=== PATIENT | female | born 1945 | race Caucasian/White ===

== ENCOUNTER → 2016-08-08 | Outpatient (CLI) | payer OTHER ==
[~2016-08-08] MED LIST: ASCO1TAB3 PO; ASPCH81X PO; CALC500C70 PO; CITA40TA12 PO; CLB200 PO; METO25TA3 PO; MULT-506 PO; OMEG1CAP71 PO; POTA1TAB97 PO; PRAV80TA PO; TRIA37.5 PO; VITAMIN B12 COMPLEX PO
--- NOTE | 2016-08-08 14:52 | DIAGNOSTIC IMAGING REPORT ---
RIGHT KNEE 3 VIEWS; LEFT KNEE 3 VIEWS CLINICAL HISTORY: Bilateral knee pain. FINDINGS: An AP standing view of both knees, a sunrise view of both knees, with crosstable lateral views of the right and left knee are compared to study dated 08/09/2013. The skeletal structures are osteopenic. No fracture is identified. Right knee: There is moderate narrowing within the medial and lateral compartments with advanced degenerative narrowing seen at the patellofemoral compartment. There are large lateral marginal osteophytes, degenerative beaking of the tibial spine, and large patellar enthesophytes. No joint effusion is identified. The overlying soft tissues are within normal limits. Left knee: A left knee arthroplasty is in near anatomic alignment. There has been undersurface remodeling of the patella. No joint effusion is identified. Patellar enthesophytes are observed. The overlying soft tissues are within normal limits. A calcified fabella is incidentally noted. IMPRESSION: 1. No acute bony abnormality is identified in either knee. 2. Moderate to advanced arthritic change is seen in the right knee. This has modestly progressed from the 2014 examination. 3. A left knee arthroplasty is in near anatomic alignment. There is no radiographic evidence of hardware malfunction. Electronically signed by: Vincent Stephens M.D. 08/08/2016 2:50 PM Dictated Date/Time: 08/08/2016 2:48 PM
== END | disposition home or self-care (01) ==
LOC: C.RDSM 12:32
PROVIDERS: ATTEND Physician Assistant
DX: M17.0 Bilateral primary osteoarthritis of knee (principal); Z96.659 Presence of unspecified artificial knee joint

== ENCOUNTER → 2016-09-17 | Outpatient (CLI) | payer OTHER ==
[2016-09-17 12:39] LABS: BASO % 0.6 %; BASO ABS # 0.03 K/uL (0-0.2); COMPLETE YES; EOS % 2.6 %; HEMATOCRIT 40.6 % (37-47); IG% 0.2 %; LYMPH % 22.3 %; LYMPH ABS # 1.11 K/uL (1.2-3.4); MEAN CELL VOLUME 89.6 fL (80-100); MEAN CORPUSCULAR HEMOGLOBIN 29.1 pg (25-34); MEAN CORPUSCULAR HGB CONC 32.5 g/dl (32-36); MEAN PLATELET VOLUME 9.9 fL (7.4-10.4); MONO % 13.1 %; NEUT % 61.2 %; PLATELET COUNT 250 K/uL (130-400); RED BLOOD COUNT 4.53 M/uL (4.2-5.4); WHITE BLOOD COUNT 4.98 K/uL (4.8-10.8)
[2016-09-17 13:04] LABS: ESTIMATED AVERAGE GLUCOSE 123 mg/dl; HA1C FLAG Normal (Normal)
[2016-09-17 14:10] LABS: ALKALINE PHOSPHATASE 80 U/L (45-117); BLOOD UREA NITROGEN 12 mg/dl (7-18); CALCIUM 8.7 mg/dl (8.5-10.1); CARBON DIOXIDE 28 mmol/L (21-32); CHLORIDE 104 mmol/L (98-107); CREATININE 0.84 mg/dl (0.60-1.20); GLUCOSE 106 mg/dl (70-99); HDL CHOLESTEROL 53 mg/dl; POTASSIUM 3.8 mmol/L (3.5-5.1); SODIUM 140 mmol/L (136-145)
[2016-09-17 14:22] LABS: ALT/SGPT 21 U/L (12-78); AST/SGOT 16 U/L (15-37); CHOLESTEROL 168 mg/dl (0-200); CHOLESTEROL/HDL RATIO 3.2; LDL CHOLESTEROL CALCULATED 84 mg/dl; TRIGLYCERIDES 155 mg/dl (0-150); VERY LOW DENSITY LIPOPROT CALC 31 mg/dl
== END | disposition home or self-care (01) ==
LOC: C.LABPBG 09:04
PROVIDERS: ATTEND Family Medicine
DX: R73.02 Impaired glucose tolerance (oral) (principal); I10 Essential (primary) hypertension; E78.00 Pure hypercholesterolemia, unspecified; K59.00 Constipation, unspecified; G47.33 Obstructive sleep apnea (adult) (pediatric)

== ENCOUNTER → 2017-08-22 | Outpatient (CLI) | payer OTHER ==
--- NOTE | 2017-08-22 11:09 | DIAGNOSTIC IMAGING REPORT ---
L FOOT MIN 3 VIEWS, R FOOT MIN 3 VIEWS HISTORY: 71 years-old Female BILATERAL FOOT PAIN acute bilateral foot pain without reported trauma COMPARISON: None available TECHNIQUE: 3 views of the bilateral feet FINDINGS: LEFT: Bones appear mildly demineralized. [id number] multidigit interphalangeal with mild first MTP joint osteoarthritis. Type I accessory navicular. At least moderate joint space narrowing with subchondral sclerosis and marginal spurring involves the midfoot. Small plantar enthesophyte about the calcaneus. No acute fracture or dislocation identified. No opaque foreign body. RIGHT: The bones appear mildly demineralized. At least mild first MTP joint degenerative changes with moderate multidigit interphalangeal osteoarthritis. Moderate to severe degenerative changes about the midfoot. No acute fracture or dislocation. Dystrophic calcifications within the distribution of the plantar fascia measuring up to 1.8 cm in length. Small plantar enthesophyte about the calcaneus. Mild soft tissue swelling about the ankle with small ankle joint effusion. IMPRESSION: 1. No acute fracture or dislocation identified involving the bilateral feet. 2. Degenerative changes as above with osteopenic appearance of the bones. 3. Dystrophic calcifications of the right plantar fascia. The above report was generated using voice recognition software. It may contain grammatical, syntax or spelling errors. Electronically signed by: Diony Aponte M.D. 08/22/2017 11:08 AM Dictated Date/Time: 08/22/2017 11:02 AM
== END | disposition home or self-care (01) ==
LOC: C.RDSM 10:52
PROVIDERS: ATTEND Physician Assistant
DX: M79.671 Pain in right foot (principal); M79.672 Pain in left foot

== ENCOUNTER 2021-12-30 16:25 | Inpatient (IN) ==
[~2021-12-30 16:25] MED LIST changes: +ACETAMINOPHEN 500 MG TAB PO STA; -ASCO1TAB3 PO; -ASPCH81X PO; -CALC500C70 PO; -CITA40TA12 PO; -CLB200 PO; +LABETALOL HCL IV 5 MG/ML 20ML IV ONE; -METO25TA3 PO; -MULT-506 PO; -OMEG1CAP71 PO; -POTA1TAB97 PO; -PRAV80TA PO; +SODIUM CHLORIDE 0.9% 1000ML 1,000 ML IV SCH; -TRIA37.5 PO; -VITAMIN B12 COMPLEX PO
[2021-12-30] MEDS ORDERED: OPTIRAY 300 500mL IV ONE (16:34)
[2021-12-30] MEDS ORDERED: STAT IV STA (16:43)
[2021-12-30] MEDS ORDERED: SODIUM CHLORIDE 0.9% 10ML FLUSH IV STA (16:43)
[2021-12-30] MEDS ORDERED: LABETALOL HCL IV 5 MG/ML 20ML IV STA (16:43)
[2021-12-30] MEDS ORDERED: No Aspirin within 24hrs of THROMBOLYTIC-Stroke PO SCH (16:45)
[2021-12-30] MEDS ORDERED: TENECTEPLASE 25 MG in SYRINGE 0 ML IV ONE (16:53)
[2021-12-30 17:04] LABS: Basophils # (auto) 0.08 K/uL (0-0.2); Basophils % (auto) 1.2 %; Eosinophils # (auto) 0.14 K/uL (0-0.50); Eosinophils % (auto) 2.2 %; Hematocrit (blood only) 38.5 % (34.1-44.9); Hemoglobin 12.6 g/dl (12.0-16.0); Immature Granulocytes # (auto) 0.03 K/uL (0.00-0.02); Immature Granulocytes % (auto) 0.5 %; Lymphocytes # (auto) 1.88 K/uL (1.2-3.4); Lymphocytes % (auto) 28.9 %; Mean Corpuscular Hemoglobin 29.2 pg (25.0-34.0); Mean Corpuscular Hgb Conc 32.7 g/dL (32.0-36.0); Mean Corpuscular Volume 89.3 fL (80.0-100.0); Monocytes # (auto) 0.83 K/uL (0.24-0.82); Monocytes % (auto) 12.8 %; Neutrophils # (auto) 3.54 K/uL (1.4-6.5); Neutrophils % (auto) 54.4 %; Platelet Count 226 K/uL (130-400); RDW Coefficient of Variation 12.7 % (11.5-14.5); Red Blood Count 4.31 M/uL (3.93-5.22)
--- NOTE | 2021-12-30 17:06 | CT Scan Report ---
CT angio neck with con, CT angio head w con, CT head/brain wo con CLINICAL HISTORY: Stroke Like Symptoms TECHNIQUE: Contiguous axial CT images of the head were acquired from the base of the skull to the renate funmi without intravenous contrast administration. CT angiography of the head and neck was performed f ollowing intravenous administration of iodinated contrast. Coronal and sagittal MIPS were obtained fr om the axial data set and were submitted for review. Automated dose lowering techniques and/or adjus tment according to patient size were utilized for this examination. All measurements were calculated based on NASCET criteria. CT DOSE: 1347.24 mGy.cm Comparison: None available at the time of this dictation. FINDINGS: CT head: Areas of decreased attenuation are present in the periventricular and subcortical white caterina er bilaterally consistent with small vessel ischemic disease. Generalized cerebral atrophy with comme nsurate enlargement of the ventricles, sulci, and cisterns is also present. There is no acute intracr anial hemorrhage or evidence of acute territorial infarction. No shift of the midline structures, mas s effect, or extra-axial abnormalities are shown. Atherosclerotic calcifications are present in the intracranial segments of the internal carotid arteries. Lungs and soft tissues are unremarkable. CTA Neck: A 3 vessel aortic arch is shown. There is no significant atherosclerotic plaque in the aor tic arch or the origins of the innominate, left common carotid, and left subclavian arteries. There is mild calcified atherosclerotic plaque at the bifurcation of the bilateral common carotid arteries without hemodynamically significant flow stenosis. There is no dissection present. The left vertebra l artery is dominant. CTA Head: The anterior and posterior cerebral circulations are patent. No hemodynamically significan t stenosis, aneurysm, dissection, or arteriovenous malformation is shown. Atherosclerotic disease is noted. IMPRESSION: 1. No acute intracranial hemorrhage, evidence of acute territorial infarction, or other acute intrac ranial disease process. 2. No occlusion, hemodynamically significant stenosis, or dissection in the major cervical arteries. 3. No occlusion, hemodynamically significant stenosis, aneurysm, dissection, or arteriovenous malfor mation in the major intracranial arteries. Assessment of stenosis of the internal carotid arteries is based on NASCET criteria. ACT 112: Negative or not required by law. Electronically signed by: Alfa Barker M.D. 12/30/2021 5:03 PM
[2021-12-30 17:15] LABS: Partial Thromboplastin Ratio 0.9; Partial Thromboplastin Time 24.9 Seconds (21.0-31.0); Prothrombin Time 10.8 Seconds (9.0-12.0)
--- NOTE | 2021-12-30 17:15 | Emergency Department Note ---
Impression & Plan Acute cerebrovascular accident (CVA), Acute ischemic stroke ED Provider Note NAME: RAMOS BABIN AGE: 76 SEX: F : 1945 ARRIVES VIA: Ambulance INFORMANT: Patient, EMS, The patient's family ED PROVIDER(S): Gerard Bruno DO CHIEF COMPLAINT: Strokelike symptoms HPI: The patient is a 76-year-old female who presented to the emergency department by ambulance for an evaluation of strokelike symptoms. The patient was made a stroke alert prior to arrival after we received a notification from the prehospital personnel. According to the patient's significant other they were together this afternoon. She was in her normal state of health. She woke up at a normal time. She had no previous complaints such as chest pain di fficulty breathing or weakness but has been complaining of neck pain over the course of the last few weeks. The patient went to the kitchen and her noticed that something was wrong. He went to check on her this was at approximately 1505. The patient was leaning over the counter and apparently could not use her left side. He put her into a chair and called his daughter and then called 911. The 911 call went out at approximately 1509. We received an initial call about this patient alerting us that she had strokelike symptoms and there was no manager quantitative nearby. The patient arrived at our facility was made a stroke alert and went directly to CT. On route she was noted to have left facial droop difficulty speaking left arm weakness and left leg weakness. Her symptoms did somewhat improve in the emergency department at this time the patient is able to answer questions but she appears very dysarthric and confused. She is denying having any headache nausea or vomiting. She denies having any chest pain or difficulty breathing. She denies having any trauma. She does not take any blood thinners. She has been compliant with her usual outpatient medications which does include medication for blood pressure. ROS: See above HPI for pertinent positives & negatives. A total of 10 systems reviewed and were otherwise negative. PAST MEDICAL HISTORY: See Below PAST SURGICAL HISTORY: See Below FAMILY HISTORY: See Below SOCIAL HISTORY: See Below HOME MEDICATIONS: See Below ALLERGIES: See Below VITALS: See Below PHYSICAL EXAMINATION: GENERAL: Patient is awake and answering questions slowly. Her voice is pressured. EYES: The conjunctivae are clear. The pupils are round and reactive. Slight ptosis was noted in the left eye. EARS, NOSE, MOUTH AND THROAT: The nose is without any evidence of any deformity. NECK: The neck is nontender and supple. RESPIRATORY: Normal respiratory effort is noted there is no evidence of wheezing rhonchi or rales CARDIOVASCULAR: Regular rate and rhythm noted there no murmurs rubs or gallops normal S1 normal S2. GASTROINTESTINAL: The abdomen is soft. Abdomen is nontender. MUSCULOSKELETAL/EXTREMITIES: There is no evidence of gross deformity full range of motion is noted in the hips and shoulders. SKIN: Skin is warm and dry. Trace pedal edema was noted bilaterally. NEUROLOGIC: Patient is awake to verbal commands. She is oriented to person and place. She recognizes her . Her speech is pressured. She has a left- sided facial droop with forehead sparing. The patient is able to hold her left leg off the bed for greater than 5 seconds but against pressure she goes directly to the bed. She is able to hold her right leg off the bed for greater than 5 seconds and can hold it against pressure. The patient has drift in her left upper extremity. MEDICAL DECISION MAKING: The patient is a 76-year-old female who presented to the emergency department f or an acute stroke like syndrome. The patient was felt to be a good candidate for thrombolytics. She was quickly evaluated in the CT scanner. My initial interpretation of the CT revealed no acute bleed or abnormality. Her blood pressure did require control initially but was well-maintained. She was felt to be a good candidate for TN K after I discussed the risks and benefits with her her daughter and her . TN K was made ready and the timeout was done. We were awaiting the CT report. Once a CT returned as no acute disease the patient was given TN K. She was reevaluated multiple times. TN K stroke order set was used. The patient was somewhat improved compared to her initial presentation. I discussed the patient's condition with the on-call [facility] hospitalist. They have agreed to evaluate the patient in the emergency department for further management disposition. Triage Nursing notes reviewed. Prior medical records reviewed Vital Signs: reviewed and remarkable for elevated blood pressure. Differential diagnosis: Infection, dehydration, metabolic abnormality, hypo/hyperglycemia, electrolyte disturbance, anemia, hypoxia, cardiac sources, intracerebral event, toxicologic, neurologic, as well as other pathologies. ER treatment provided: See below Diagnostics interpreted by me: ECG: EKG was obtained in the emergency department. My interpretation is sinus rhythm at [address] segment abnormalities were noted in the inferior and low lateral leads. This was compared to a tracing from December 24, 2021. No changes were noted. Cardiac Monitoring: An order was placed for continuous cardiac monitoring. The monitor shows a rate of 72 bpm with sinus rhythm. Laboratory studies: As stated above and show below. Imaging studies: See below Consultation(s): I discussed this case with Dr. Scooter villalba for telestroke neurology at [facility]. I discussed this case with Dr. Preciado who is on-call for the [facility] hospitalist group. He will evaluate the patient in the emergency department for further management and disposition. ED COURSE: Procedures: none Critical Care: I have personally spent greater than 45 minutes of critical care time in the d irect management of this patient. This includes bedside care, interpretation of diagnostic studies, and testing, discussion with consultants, patient, and family members, and other required patient management activities. This 45 minutes is in excess of all separately billable procedures. Thrombolytics MDM Did the patient receive IV thrombolytics?: Yes Was there any delay in administration?: No Reason(s) for Delay: Plain CT read as pending once it was reported the decision to give TN K was made. Patient's blood pressure was also managed in the emergency department bec ause of initial elevated blood pressure the patient cannot receive TN K until this was controlled. Past Med/Surg History Medical History Anxiety Depression HTN (hypertension) controlled, stable per pt Morbid obesity with BMI of 40.0-44.9, adult Neck pain Chronic s/p 2018 fall (left sided movement) Osteopenia Palpitations Paroxysmal atrial tachycardia follows with [facility]ology Pulmonary hypertension Borderline pulmonary hypertension on 2018 echo; PASP 44 mHg Sinus bradycardia follows with [facility] cardiology, "preferable to recurrent atrial dysrhythmia/palpitations" Sleep apnea CPAP-compliant Venous insufficiency Surgical History H/O section x2 H/O hernia repair History of cataract surgery R/L History of colonoscopy 2021 Hx of breast reduction, elective S/P breast biopsy benign S/P total hip arthroplasty right S/P total knee arthroplasty left S/P tubal ligation Per records, pt unsure S/P wrist surgery right Status post laparoscopy Family History Mother Hypertension Father Myocardial infarction Pacemaker Grandmother (Paternal) Diabetes Sister Cerebral palsy Family/Other History of anesthesia reaction GRANDDAUGHTER AGE 6-7 SLOW TO WAKE Aunt Diabetes Other Family history non-contributory Social History Smoking Status: Never smoker Second Hand Exposure: No; Hx Alcohol Use: No Hx Substance Use: No Preferred Language: Serbian Communication Ability: Effective Halver 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 Required: No Beliefs That Will Affect Care: None Current Living Situation: Spouse current occupational status: retired Feels Safe at Home: Yes Assistive Devices: Cane, CPAP and Glasses Allergies Allergies Allergy/AdvReac Type Severity Reaction Status Date / Time erythromycin base AdvReac Intermediate Nausea Verified 12/30/21 16:41 meperidine AdvReac Intermediate NAUSEA Verified 12/30/21 16:41 Home Meds Home Medications Medication Instructions Recorded Confirmed ascorbic acid (vitamin C) 1,000 mg 1,000 mg PO HS 03/15/18 12/30/21 tablet (Vitamin C) calcium carbonate 500 mg-vitamin 1 tab PO BID 03/15/18 12/30/21 D3 5 mcg (200 unit) tablet (Os-Pan 500 + D3) celecoxib 200 mg capsule (Celebrex) 200 mg PO DAILY PRN Pain 03/15/18 12/30/21 multivitamin 1 tab PO QAM 03/15/18 12/30/21 omega 3-lsc-ttj-fish oil 1,000 mg 1 cap PO BID 10/03/20 12/30/21 (120 mg-180 mg) capsule (Fish Oil) cyanocobalamin (vitamin B-12) 100 1,000 mcg PO PM 08/29/21 12/30/21 mcg tablet potassium chloride 20 mEq 20 meq PO QAM 08/29/21 12/30/21 tablet,extended release(part/cryst) (Klor-Con M) triamterene 37.5 1 tab PO QAM 08/29/21 12/30/21 mg-hydrochlorothiazide 25 mg tablet pravastatin 80 mg tablet 80 mg PO HS 10/11/21 12/30/21 Previous Rx's Medication Instructions Recorded metoprolol succinate 25 mg 25 mg PO .COMPLEX #180 tabs 05/17/21 tablet,extended release 24 hr citalopram 40 mg tablet 40 mg PO QPM #90 tabs 08/21/21 Results & Data (ED) Vital Signs Vital Signs - 24 hr 12/30/21 16:30 12/30/21 17:03 12/30/21 17:18 Temperature 36.8 C Temperature Source Oral Pulse Rate 70 Pulse Rate [Apical] 77 80 Pulse Rhythm Regular Pulse Rhythm [Apical] Regular Pulse Strength Normal Pulse Strength [Apical] Normal Respiratory Rate 20 20 20 Respiratory Effort / Characteristics Non-Labored Non-Labored Spontaneous Non-Labored Spontaneous Respiratory Depth Normal Normal Normal Respiratory Pattern Regular Regular Regular Blood Pressure 175/125 H Blood Pressure [Right Arm] 152/80 H 142/75 H Blood Pressure Mean 141 Blood Pressure Mean [Right Arm] 104 97 Blood Pressure Position Lying Pulse Oximetry 97 97 97 Oxygen Delivery Method Nasal Cannula Nasal Cannula Nasal Cannula Oxygen Flow Rate 2 2 2 Sepsis Recent Fever Within 48 Hours No Sepsis New/Unexplained Change in Mental Status Yes Sepsis Action Taken by Nursing No Action Required 12/30/21 17:33 Temperature Temperature Source Pulse Rate Pulse Rate [Apical] 72 Pulse Rhythm Pulse Rhythm [Apical] Regular Pulse Strength Pulse Strength [Apical] Normal Respiratory Rate 18 Respiratory Effort / Characteristics Non-Labored Spontaneous Respiratory Depth Normal Respiratory Pattern Regular Blood Pressure Blood Pressure [Right Arm] 146/78 H Blood Pressure Mean Blood Pressure Mean [Right Arm] 100 Blood Pressure Position Pulse Oximetry 98 Oxygen Delivery Method Nasal Cannula Oxygen Flow Rate 2 Sepsis Recent Fever Within 48 Hours Sepsis New/Unexplained Change in Mental Status Sepsis Action Taken by Detention Medications Current Medication List: was personally reviewed by me Laboratory Data Attestation: I reviewed the patient's lab results. Result diagrams: 12/30/21 16:45 12/30/21 16:45 Lab Results 12/30/21 12/30/21 12/30/21 Range/Units 16:37 16:45 16:45 WBC 6.50 (4.8-10.8) K/ul RBC 4.31 (3.93-5.22) M/uL Hgb 12.6 (12.0-16.0) g/dl Hct 38.5 (34.1-44.9) % MCV 89.3 (80.0-100.0) fL MCH 29.2 (25.0-34.0) pg MCHC 32.7 (32.0-36.0) g/dL RDW Std Deviation 42.0 (36.4-46.3) fL RDW Coeff of Lola 12.7 (11.5-14.5) % Plt Count 226 (130-400) K/uL MPV 9.0 L (9.4-12.3) fL Immature Gran % (Auto) 0.5 % Neut % (Auto) 54.4 % Lymph % (Auto) 28.9 % [place] % (Auto) 12.8 % Eos % (Auto) 2.2 % Baso % (Auto) 1.2 % Neut # (Auto) 3.54 (1.4-6.5) K/uL Lymph # (Auto) 1.88 (1.2-3.4) K/uL [place] # (Auto) 0.83 H (0.24-0.82) K/uL Eos # (Auto) 0.14 (0-0.50) K/uL Baso # (Auto) 0.08 (0-0.2) K/uL Immature Gran # (Auto) 0.03 H (0.00-0.02) K/uL PT 10.8 (9.0-12.0) Seconds INR 1.0 (0.9-1.1) APTT 24.9 (21.0-31.0) Seconds PTT Ratio 0.9 Sodium (136-145) mmol/L Potassium (3.5-5.1) mmol/L Chloride (98-107) mmol/L Carbon Dioxide (21-32) mmol/L Anion Gap (3-11) BUN (6-23) mg/dl Creatinine (0.6-1.2) mg/dl Est Cr Clr Drug Dosing ml/min Est GFR ( Amer) ml/min Est GFR (Non-Af Amer) ml/min BUN/Creatinine Ratio (10-20) Glucose (70-99(Fasting)) mg/dl POC Glucose 96 (70-99) mg/dl Calcium (8.5-10.1) mg/dl Magnesium (1.7-2.4) mg/dl Total Bilirubin (0.2-1.0) mg/dl AST (13-39) U/L ALT (7-52) U/L Alkaline Phosphatase (34-104) U/L Troponin I High Sens (0-14) pg/ml Total Protein (6.0-8.3) gm/dl Albumin (3.4-5.0) gm/dl Globulin (2.5-4.0) gm/dl Albumin/Globulin Ratio (0.9-2) SARS-CoV-2, RNA, NAAT (NEGATIVE) 12/30/21 12/30/21 Range/Units 16:45 16:47 WBC (4.8-10.8) K/ul RBC (3.93-5.22) M/uL Hgb (12.0-16.0) g/dl Hct (34.1-44.9) % MCV (80.0-100.0) fL MCH (25.0-34.0) pg MCHC (32.0-36.0) g/dL RDW Std Deviation (36.4-46.3) fL RDW Coeff of Lola (11.5-14.5) % Plt Count (130-400) K/uL MPV (9.4-12.3) fL Immature Gran % (Auto) % Neut % (Auto) % Lymph % (Auto) % [place] % (Auto) % Eos % (Auto) % Baso % (Auto) % Neut # (Auto) (1.4-6.5) K/uL Lymph # (Auto) (1.2-3.4) K/uL [place] # (Auto) (0.24-0.82) K/uL Eos # (Auto) (0-0.50) K/uL Baso # (Auto) (0-0.2) K/uL Immature Gran # (Auto) (0.00-0.02) K/uL PT (9.0-12.0) Seconds INR (0.9-1.1) APTT (21.0-31.0) Seconds PTT Ratio Sodium 131 L (136-145) mmol/L Potassium 3.8 (3.5-5.1) mmol/L Chloride 99 (98-107) mmol/L Carbon Dioxide 25 (21-32) mmol/L Anion Gap 7 (3-11) BUN 17 (6-23) mg/dl Creatinine 0.86 (0.6-1.2) mg/dl Est Cr Clr Drug Dosing 75.6 ml/min Est GFR ( Amer) 76.6 ml/min Est GFR (Non-Af Amer) 66.1 ml/min BUN/Creatinine Ratio 19.8 (10-20) Glucose 92 (70-99(Fasting)) mg/dl POC Glucose (70-99) mg/dl Calcium 8.8 (8.5-10.1) mg/dl Magnesium 1.7 (1.7-2.4) mg/dl Total Bilirubin 0.6 (0.2-1.0) mg/dl AST 16 (13-39) U/L ALT 11 (7-52) U/L Alkaline Phosphatase 50 (34-104) U/L Troponin I High Sens 6.7 (0-14) pg/ml Total Protein 6.2 (6.0-8.3) gm/dl Albumin 3.7 (3.4-5.0) gm/dl Globulin 2.5 (2.5-4.0) gm/dl Albumin/Globulin Ratio 1.5 (0.9-2) SARS-CoV-2, RNA, NAAT NEGATIVE (NEGATIVE) Administered Medications Labetalol HCl (Labetalol Hcl Iv 5 Mg/Ml 20ml) 10 mg IV Q15M PRN PRN Reason: SBP >180 or DBP >105 mmHg Stop: 01/29/22 19:05 Last Admin: 12/30/21 22:45 Dose: 10 mg Documented By: TP Co-signed By: DUNIA Discontinued Medications Acetaminophen (Acetaminophen 500 Mg Tab) 1,000 mg PO NOW STA Stop: 12/30/21 16:09 Last Admin: 12/30/21 18:20 Dose: Not Given Documented By: JOHNNY Sodium Chloride (Nss 1000ml) 1,000 mls @ 50 mls/hr IV .Q20H VENTURA Stop: 01/29/22 16:14 Last Infusion: 12/31/21 07:26 Dose: 0 mls/hr Documented By: Admin: 12/30/21 16:14 Dose: 50 mls/hr Documented By: NIK Tenecteplase 25 mg/ Syringe 5 mls @ 60 mls/min IV NOW ONE; Protocol Stop: 12/30/21 16:54 Last Admin: 12/30/21 16:49 Dose: 60 mls/min Documented By: JOHNNY Co-signed By: NIK Acetaminophen (Ofirmev) 1,000 mg in 100 mls @ 400 mls/hr IV NOW STA Stop: 12/31/21 04:06 Last Infusion: 12/31/21 04:49 Dose: 0 mls/hr Documented By: Admin: 12/31/21 04:34 Dose: 400 mls/hr Documented By: NORMA Ioversol (Optiray 300 500ml) 125 ml IV ONCE ONE Stop: 12/30/21 16:35 Last Admin: 12/30/21 16:34 Dose: 116 ml Documented By: CHI Labetalol HCl (Labetalol Hcl Iv 5 Mg/Ml 20ml) Confirm Administered Dose 10 mg IV .STK-MED ONE Stop: 12/30/21 16:24 Last Admin: 12/30/21 18:21 Dose: Not Given Documented By: JOHNNY Labetalol HCl (Labetalol Hcl Iv 5 Mg/Ml 20ml) 10 mg IV NOW STA Stop: 12/30/21 16:44 Last Admin: 12/30/21 16:50 Dose: 10 mg Documented By: JOHNNY Co-signed By: NIK Miscellaneous (Stat Iv) 1 each N/A NOW STA Stop: 12/30/21 16:44 Last Admin: 12/30/21 18:21 Dose: Not Given Documented By: JOHNNY Sodium Chloride (Sodium Chloride 0.9% 10ml Flush) 20 ml IV NOW STA Stop: 12/30/21 16:44 Last Admin: 12/30/21 16:23 Dose: 20 ml Documented By: NIK Imaging Data Radiologist's Impression: Chest X-Ray 12/30/21 16:07 XR chest 1V portable CLINICAL HISTORY: Stroke Like Symptoms TECHNIQUE: Single frontal radiograph of the chest was obtained. Comparison: Comparison is made to chest radiograph 12/24/2021 FINDINGS: No lines and tubes are seen. Cardiomegaly is noted. Prominence and cephalization of the vasculature is seen. No evidence of pleural effusion or pneumothorax. IMPRESSION: Cardiomegaly and mild pulmonary edema. ACT 112: Negative or not required by law. Electronically signed by: Alfa Barker M.D. 12/30/2021 5:[address] 12/30/21 16:07 CT angio neck with con, CT angio head w con, CT head/brain wo con CLINICAL HISTORY: Stroke Like Symptoms TECHNIQUE: Contiguous axial CT images of the head were acquired from the base of the skull to the vertex without intravenous contrast administration. CT william ography of the head and neck was performed following intravenous administration of iodinated contrast. Coronal and sagittal MIPS were obtained from the axial data set and were submitted for review. Automated dose lowering techniques and/or adjustment according to patient size were utilized for this examination. All measurements were calculated based on NASCET criteria. CT DOSE: 1347.24 mGy.cm Comparison: None available at the time of this dictation. FINDINGS: CT head: Areas of decreased attenuation are present in the periventricular and subcortical white matter bilaterally consistent with small vessel ischemic disease. Generalized cerebral atrophy with commensurate enlargement of the ventricles, sulci, and cisterns is also present. There is no acute intracranial hemorrhage or evidence of acute territorial infarction. No shift of the midline structures, mass effect, or extra-axial abnormalities are shown. Atherosclerotic calcifications are present in the intracranial segments of the internal carotid arteries. Lungs and soft tissues are unremarkable. CTA Neck: A 3 vessel aortic arch is shown. There is no significant athero sclerotic plaque in the aortic arch or the origins of the innominate, left common carotid, and left subclavian arteries. There is mild calcified atherosclerotic plaque at the bifurcation of the bilateral common carotid arteries without hemodynamically significant flow stenosis. There is no dissect ion present. The left vertebral artery is dominant. CTA Head: The anterior and posterior cerebral circulations are patent. No hemodynamically significant stenosis, aneurysm, dissection, or arteriovenous malformation is shown. Atherosclerotic disease is noted. IMPRESSION: 1. No acute intracranial hemorrhage, evidence of acute territorial infarction, or other acute intracranial disease process. 2. No occlusion, hemodynamically significant stenosis, or dissection in the major cervical arteries. 3. No occlusion, hemodynamically significant stenosis, aneurysm, dissection, or arteriovenous malformation in the major intracranial arteries. Assessment of stenosis of the internal carotid arteries is based on NASCET criteria. ACT 112: Negative or not required by law. Electronically signed by: Alfa Barker M.D. 12/30/2021 5:03 PM Head CTA 12/30/21 16:07 CT angio neck with con, CT angio head w con, CT head/brain wo con CLINICAL HISTORY: Stroke Like Symptoms TECHNIQUE: Contiguous axial CT images of the head were acquired from the base of the skull to the vertex without intravenous contrast administration. CT angiography of the head and neck was performed following intravenous administration of iodinated contrast. Coronal and sagittal MIPS were obtained from the axial data set and were submitted for review. Automated dose lowering techniques and/or adjustment according to patient size were utilized for this examination. All measurements were calculated based on NASCET criteria. CT DOSE: 1347.24 mGy.cm Comparison: None available at the time of this dictation. FINDINGS: CT head: Areas of decreased attenuation are present in the periventricular and subcortical white matter bilaterally consistent with small vessel ischemic disease. Generalized cerebral atrophy with commensurate enlargement of the ventricles, sulci, and cisterns is also present. There is no acute intracranial hemorrhage or evidence of acute territorial infarction. No shift of the midline structures, mass effect, or extra-axial abnormalities are shown. Atherosclerotic calcifications are present in the intracranial segments of the internal carotid arteries. Lungs and soft tissues are unremarkable. CTA Neck: A 3 vessel aortic arch is shown. There is no significant atherosclerotic plaque in the aortic arch or the origins of the innominate, left common carotid, and left subclavian arteries. There is mild calcified athe rosclerotic plaque at the bifurcation of the bilateral common carotid arteries without hemodynamically significant flow stenosis. There is no dissection present. The left vertebral artery is dominant. CTA Head: The anterior and posterior cerebral circulations are patent. No hemodynamically significant stenosis, aneurysm, dissection, or arteriovenous malformation is shown. Atherosclerotic disease is noted. IMPRESSION: 1. No acute intracranial hemorrhage, evidence of acute territorial infarction, or other acute intracranial disease process. 2. No occlusion, hemodynamically significant stenosis, or dissection in the major cervical arteries. 3. No occlusion, hemodynamically significant stenosis, aneurysm, dissection, or arteriovenous malformation in the major intracranial arteries. Assessment of stenosis of the internal carotid arteries is based on NASCET criteria. ACT 112: Negative or not required by law. Electronically signed by: Alfa Barker M.D. 12/30/2021 5:03 PM Neck CTA 12/30/21 16:07 CT angio neck with con, CT angio head w con, CT head/brain wo con CLINICAL HISTORY: Stroke Like Symptoms TECHNIQUE: Contiguous axial CT images of the head were acquired from the base of the skull to the vertex without intravenous contrast administration. CT angiog yoselin of the head and neck was performed following intravenous administration of iodinated contrast. Coronal and sagittal MIPS were obtained from the axial data set and were submitted for review. Automated dose lowering techniques and/or adjustment according to patient size were utilized for this examination. All measurements were calculated based on NASCET criteria. CT DOSE: 1347.24 mGy.cm Comparison: None available at the time of this dictation. FINDINGS: CT head: Areas of decreased attenuation are present in the periventricular and subcortical white matter bilaterally consistent with small vessel ischemic disease. Generalized cerebral atrophy with commensurate enlargement of the v entricles, sulci, and cisterns is also present. There is no acute intracranial hemorrhage or evidence of acute territorial infarction. No shift of the midline structures, mass effect, or extra-axial abnormalities are shown. Atherosclerotic calcifications are present in the intracranial segments of the internal carotid arteries. Lungs and soft tissues are unremarkable. CTA Neck: A 3 vessel aortic arch is shown. There is no significant atherosc lerotic plaque in the aortic arch or the origins of the innominate, left common carotid, and left subclavian arteries. There is mild calcified atherosclerotic plaque at the bifurcation of the bilateral common carotid arteries without hemodynamically significant flow stenosis. There is no dissection present. The left vertebral artery is dominant. CTA Head: The anterior and posterior cerebral circulations are patent. No hemodynamically significant stenosis, aneurysm, dissection, or arteriovenous malformation is shown. Atherosclerotic disease is noted. IMPRESSION: 1. No acute intracranial hemorrhage, evidence of acute territorial infarction, or other acute intracranial disease process. 2. No occlusion, hemodynamically significant stenosis, or dissection in the major cervical arteries. 3. No occlusion, hemodynamically significant stenosis, aneurysm, dissection, or arteriovenous malformation in the major intracranial arteries. Assessment of stenosis of the internal carotid arteries is based on NASCET criteria. ACT 112: Negative or not required by law. Electronically signed by: Alfa Barker M.D. 12/30/2021 5:03 PM Discharge Plan Visit Data Chief Complaint: Stroke Alert Stated Complaint: STROKE SX (STROKE ALERT) ED Provider: Gerard Bruno Discharge Problem: Acute cerebrovascular accident (CVA), Acute ischemic stroke Patient Disposition: Admitted As Inpatient Discharge Instructions Interventions: ED Discharge Assessment Last Done: 12/30/21 18:15
--- NOTE | 2021-12-30 17:35 | History & Physical Report ---
Date of Service December 30, 2021 Assessment & Plan (1) CVA (cerebral vascular accident): Plan: -Admitted to ICU status post TPA. -Head CT without contrast 24 hours s/p TPA administration to evaluate for hemorrhagic stroke conversion and/or with any neurological changes. -MRI, routine, tomorrow. -Echo in a.m. -CBC, BMP, HbA1c, PT/INR, lipid panel in a.m. -N.p.o. for now. -PT, OT, ST to evaluate in a.m. -Labetalol 10 mg every 15 IV as needed, defer to ICU for continued IV boluses versus drip, goal SBP < 180, DBP <100. -Avoid hypotension, hypoglycemia. -CTA of head and neck as above, no significant stenosis. -prevention measures: Start aspirin appropriate; statin therapy is appropriate, BP control. -Telemetry for 24 hours, evaluate for episodes of atrial fibrillation. History of Present Illness Primary Care Provider: Caridad Rolon DO Allergies Allergy/AdvReac Type Severity Reaction Status Date / Time erythromycin base AdvReac Intermediate Nausea Verified 12/30/21 16:41 meperidine AdvReac Intermediate NAUSEA Verified 12/30/21 16:41 Home Medications Medication Instructions Recorded Confirmed Type ascorbic acid (vitamin C) 1,000 mg 1,000 mg PO HS 03/15/18 12/30/21 History tablet (Vitamin C) calcium carbonate 500 mg-vitamin 1 tab PO BID 03/15/18 12/30/21 History D3 5 mcg (200 unit) tablet (Os-Pan 500 + D3) celecoxib 200 mg capsule (Celebrex) 200 mg PO DAILY PRN Pain 03/15/18 12/30/21 History multivitamin 1 tab PO QAM 03/15/18 12/30/21 History omega 9-nxl-gkx-fish oil 1,000 mg 1 cap PO BID 10/03/20 12/30/21 History (120 mg-180 mg) capsule (Fish Oil) metoprolol succinate 25 mg 25 mg PO .COMPLEX #180 tabs 05/17/21 12/30/21 Rx tablet,extended release 24 hr citalopram 40 mg tablet 40 mg PO QPM #90 tabs 08/21/21 12/30/21 Rx cyanocobalamin (vitamin B-12) 100 1,000 mcg PO PM 08/29/21 12/30/21 History mcg tablet potassium chloride 20 mEq 20 meq PO QAM 08/29/21 12/30/21 History tablet,extended release(part/cryst) (Klor-Con M) triamterene 37.5 1 tab PO QAM 08/29/21 12/30/21 History mg-hydrochlorothiazide 25 mg tablet pravastatin 80 mg tablet 80 mg PO HS 10/11/21 12/30/21 History Past Med/Surg History Medical History Anxiety Depression HTN (hypertension) controlled, stable per pt Morbid obesity with BMI of 40.0-44.9, adult Neck pain Chronic s/p 2018 fall (left sided movement) Osteopenia Palpitations Paroxysmal atrial tachycardia follows with [facility] Pulmonary hypertension Borderline pulmonary hypertension on 2018 echo; PASP 44 mHg Sinus bradycardia follows with [facility], "preferable to recurrent atrial dysrhythmia/palpitations" Sleep apnea CPAP-compliant Venous insufficiency Surgical History H/O section x2 H/O hernia repair History of cataract surgery R/L History of colonoscopy 2021 Hx of breast reduction, elective S/P breast biopsy benign S/P total hip arthroplasty right S/P total knee arthroplasty left S/P tubal ligation Per records, pt unsure S/P wrist surgery right Status post laparoscopy Family History Mother Hypertension Father Myocardial infarction Pacemaker Grandmother (Paternal) Diabetes Sister Cerebral palsy Family/Other History of anesthesia reaction GRANDDAUGHTER AGE 6-7 SLOW TO WAKE Aunt Diabetes Other Family history non-contributory Social History Smoking Status: Never smoker Second Hand Exposure: No; Hx Alcohol Use: Yes Alcohol type: beer Hx Substance Use: No Preferred Language: [place] Leonean Communication Ability: Effective Application Security Consultant Required: No Beliefs That Will Affect Care: None Current Living Situation: Spouse current occupational status: retired Feels Safe at Home: Yes Assistive Devices: Cane, CPAP and Glasses Supervising Physician Co-Signing Physician Notes Patient seen and examined, chart reviewed, case discussed with Enid Mason PA-C and I agree with the assessment and plan as above except as otherwise noted Labs and images reviewed Vi Lopez is a 76-year-old female with a past medical history of hyperglycemia, paroxysmal atrial tachycardia, hypertension, and hyperlipidemia who presented to the emergency department for evaluation of strokelike symptoms. Patient arrived as a stroke alert. Per ER report patient was in her normal state of health this morning. At approximately 1505 hrs. patient was in the kitchen and could not use her left side. Was found by patient's who called 911 at 1509. Patient was noted on initial ER assessment to have a left facial droop, difficulty speaking, left arm weakness, and left leg weakness. Symptoms did begin to improve in the emergency department. Patient was given TNKase at 16:49 hours Received 1 dose of labetalol for hypertension. Acute CVA CTA/CThead/neck: 1. No acute intracranial hemorrhage, evidence of acute territorial infarction, or other acute intracranial disease process.2. No occlusion, hemodynamically significant stenosis, or dissection in the major cervical arteries. 3. No occlusion, hemodynamically significant stenosis, aneu rysm, dissection, or arteriovenous malformation in the major intracranial arteries. - L side weakness, arm weakness, facial droop, dysarthria at 1509 - Was starting to improve at ER assessment, still arm drift but leg improving slowly and with slurred speech - Recieved TNKase at 1649 - Slowly improving Troponin pending, hemoglobin normal Creatinine: Admitted to the ICU for post TNKase monitoring No lab draws for 24 hours post TNKase Speech eval, PT/OT Echo pending MRI pending Paroxysmal atrial tachycardia - Home MTP held, resume when able to take PO - Adequate rate control at admit Hypertension triamterenehydrochlorothiazide held while n.p.o. Hyperlipidemia Strong family history of CAD, no personal history of CAD. 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 Right knee arthritis Was pending right knee arthroplasty 01/09/2022 Pulmonary hypertension Borderline noted in 2018, no symptoms, no treatment for this TELLER Sleep apnea Compliant with CPAP DVT prophylaxis: SCDs, pharmacal prophylaxis contraindicated post tenecteplase Diet: N.p.o. pending speech eval Disposition: ICU post TNKase monitoring PG Care Time/CCT Total # of Minutes Spent Total Time Spent with Patient: Total time spent is greater than 50% in coordination of care (as documented) at patient's floor/unit and/or counseling patient: Coding Diagnoses CVA (cerebral vascular accident) I63.9
[2021-12-30 17:41] LABS: Albumin Globulin Ratio 1.5 (0.9-2); Albumin Level 3.7 gm/dl (3.4-5.0); BUN Creatinine Ratio 19.8 (10-20); Bilirubin,Total 0.6 mg/dl (0.2-1.0); Calcium 8.8 mg/dl (8.5-10.1); Creatinine Clr Calc Pharmacy 75.6 ml/min; Est GFR (African American) 76.6 ml/min; Est GFR (Non-African American) 66.1 ml/min; Globulin 2.5 gm/dl (2.5-4.0); Magnesium 1.7 mg/dl (1.7-2.4); Potassium 3.8 mmol/L (3.5-5.1); Total Protein 6.2 gm/dl (6.0-8.3)
--- NOTE | 2021-12-30 17:54 | History & Physical Report ---
Date of Service December 30, 2021 Assessment & Plan (1) CVA (cerebral vascular accident): Plan: Vi Lopez is a 76-year-old female with a past medical history of hyperglycemia, paroxysmal atrial tachycardia, hypertension, and hyperlipidemia who presented to the emergency department for evaluation of strokelike symptoms. Patient arrived as a stroke alert. Acute CVA, suspicious for MCA territory CVA CTA/CThead/neck: 1. No acute intracranial hemorrhage, evidence of acute territorial infarction, or other acute intracranial disease process.2. No occlusion, hemodynamically significant stenosis, or dissection in the major cervical arteries. 3. No occlusion, hemodynamically significant stenosis, aneurysm, dissection, or arteriovenous malformation in the major intracranial arteries. - L side weakness, arm weakness, facial droop, dysarthria at 1509 - Was starting to improve at ER assessment, still arm drift but leg improving slowly and with slurred speech - Recieved TNKase at 1649 - Slowly improving Troponin pending, hemoglobin normal Creatinine: Normal Admitted to the ICU for post TNKase monitoring No lab draws for 24 hours post TNKase Speech eval, PT/OT Echo pending MRI pending Post TNKase blood pressure goal below 180/105. Patient had brisk response from 175/125 to 142/75 following initial 10mg dose of labetalol, would use half dose first if additional required Paroxysmal atrial tachycardia - Home MTP held, resume when able to take PO - Adequate rate control at admit No history of A. fib Hypertension triamterenehydrochlorothiazide held while n.p.o. labetelol as noted Hyperlipidemia Strong family history of CAD, no personal history of CAD. 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 pending speech eval Disposition: ICU post TNKase monitoring (2) Bilateral edema of lower extremity: (3) Obesity: (4) Sinus tachycardia: (5) Sinus bradycardia: (6) Depression: (7) Venous insufficiency: (8) Paroxysmal atrial tachycardia: (9) HTN (hypertension): History of Present Illness Primary Care Provider: Caridad Rolon DO Vi Lopez is a 76-year-old female with a past medical history of hyperglycemia, paroxysmal atrial tachycardia, hypertension, and hyperlipidemia who presented to the emergency department for evaluation of strokelike symptoms. Patient arrived as a stroke alert. Per ER report patient was in her normal state of health this morning. At approximately 1505 hrs. patient was in the kitchen and could not use her left side. Was found by patient's who called 911 at 1509. Patient was noted on initial ER assessment to have a left facial droop, difficulty speaking, left arm weakness, and left leg weakness. Symptoms did begin to improve in the emergency department. Patient was given TNKase at 16:49 hours Received 1 dose of labetalol for hypertension. Patient seen at bedside post TNKase. She is awake and alert to name, place, and year. She is seen at the bedside with her family present. She reports that she was in her kitchen and walked to the counter when suddenly a paper plate seem to keep moving away from her and she could not catch it. Had a left-sided weakness, facial droop, and speaking difficulty per her family. EMS was called and symptoms were noted at 1509. In the ER her left arm and left leg weakness which was near complete per EMS was slightly improved but patient remained with facial droop and prominent dysarthria. She received TNKase at 1649. Vi reports she did not have any chest pain, chest pressure, nausea, vomiting, palpitations either at or leading to her stroke. She has never had a stroke before. She has a history of fast heart rate, but no history of A. fib. She has not had a stroke before. She notes her mother had MCA strokelike symptoms due to a meningioma, but did not have any actual strokes. She does have hypertension, relatively well controlled. No history of diabetes. No current or former history of tobacco use. Social alcohol use. She is on a statin medication for hyperlipidemia without known coronary artery disease. She reports she is starting to feel better and has good strength in her left arm and left leg, but continues to have dysarthria and some lightheadedness. Medical History: Reviewed Medications: Reviewed Surgical History: Reviewed Allergies: Reviewed Social History: No current or former tobacco use. Rare social alcohol use. No recreational drug use Code Status: Full code. Did discuss with patient and family at bedside Allergies Allergy/AdvReac Type Severity Reaction Status Date / Time erythromycin base AdvReac Intermediate Nausea Verified 12/30/21 16:41 meperidine AdvReac Intermediate NAUSEA Verified 12/30/21 16:41 Home Medications Medication Instructions Recorded Confirmed Type ascorbic acid (vitamin C) 1,000 mg 1,000 mg PO HS 03/15/18 12/30/21 History tablet (Vitamin C) calcium carbonate 500 mg-vitamin 1 tab PO BID 03/15/18 12/30/21 History D3 5 mcg (200 unit) tablet (Os-Pan 500 + D3) celecoxib 200 mg capsule (Celebrex) 200 mg PO DAILY PRN Pain 03/15/18 12/30/21 History multivitamin 1 tab PO QAM 03/15/18 12/30/21 History omega 5-ngj-fkl-fish oil 1,000 mg 1 cap PO BID 10/03/20 12/30/21 History (120 mg-180 mg) capsule (Fish Oil) metoprolol succinate 25 mg 25 mg PO .COMPLEX #180 tabs 05/17/21 12/30/21 Rx tablet,extended release 24 hr citalopram 40 mg tablet 40 mg PO QPM #90 tabs 08/21/21 12/30/21 Rx cyanocobalamin (vitamin B-12) 100 1,000 mcg PO PM 08/29/21 12/30/21 History mcg tablet potassium chloride 20 mEq 20 meq PO QAM 08/29/21 12/30/21 History tablet,extended release(part/cryst) (Klor-Con M) triamterene 37.5 1 tab PO QAM 08/29/21 12/30/21 History mg-hydrochlorothiazide 25 mg tablet pravastatin 80 mg tablet 80 mg PO HS 10/11/21 12/30/21 History Past Med/Surg History Medical History Anxiety Depression HTN (hypertension) controlled, stable per pt Morbid obesity with BMI of 40.0-44.9, adult Neck pain Chronic s/p 2018 fall (left sided movement) Osteopenia Palpitations Paroxysmal atrial tachycardia follows with [facility] Pulmonary hypertension Borderline pulmonary hypertension on 2018 echo; PASP 44 mHg Sinus bradycardia follows with [facility], "preferable to recurrent atrial dysrhythmia/palpitations" Sleep apnea CPAP-compliant Venous insufficiency Surgical History H/O section x2 H/O hernia repair History of cataract surgery R/L History of colonoscopy 2021 Hx of breast reduction, elective S/P breast biopsy benign S/P total hip arthroplasty right S/P total knee arthroplasty left S/P tubal ligation Per records, pt unsure S/P wrist surgery right Status post laparoscopy Family History Mother Hypertension Father Myocardial infarction Pacemaker Grandmother (Paternal) Diabetes Sister Cerebral palsy Family/Other History of anesthesia reaction GRANDDAUGHTER AGE 6-7 SLOW TO WAKE Aunt Diabetes Other Family history non-contributory Social History Smoking Status: Never smoker Second Hand Exposure: No; Hx Alcohol Use: Yes Alcohol type: beer Hx Substance Use: No Preferred Language: [place]erratian Communication Ability: Effective 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 NAD. Cooperative. Pulm: CTAB A&P. -wheezes, -rales, -rhonchi. Symmetrical chest rise. No increase in work of breathing. No respiratory distress. Cardiac: RRR, -mrg. Radial pulses intact and symmetrical. Abdominal: Nontender, nondistended, soft. BS present. CRANIAL NERVES: II: Pupils equal and reactive, no relative afferent pupillary defect, no VF cuts III, IV, : EOM intact, no gaze preference or deviation, no nystagmus. V: normal sensation in V1, V2, and V3 segments bilaterally VII: Left-sided facial droop prominent. Cheek puff limited by left air escape. VIII: normal hearing to speech IX, X: no uvular deviation XI: 5/5 shoulder shrug bilaterally XII: midline tongue protrusion MOTOR: RUE: 5/5 Shoulder internal rotation, external rotation, flexion, extension, abduction, adduction 5/5 Elbow flexion/extension, wrist flexion/extension 5/5 architectural renderer strength, finger flexion/extension, interosseus LUE: 4+/5 Shoulder flexion 4+/5 Elbow flexion/extension, wrist flexion/extension 4+/5 architectural renderer strength, finger flexion/extension, interosseus RLE: 5/5 to hip flexion/extension, knee flexion/extension, ankle do rsiflexion/plantarflexion LLE: 4+/5 to hip flexion/extension, knee flexion, ankle dorsiflexion/plantarflexion REFLEXES: 2/4 patellar DTR without asymmetry. no clonus SENSORY: Normal to touch in upper and lower extremities without deficit or asymmetry No hemineglect Results & Data Results & Data ([facility]) Vital Signs (Past 12 Hours) Vital Signs Temp Pulse Resp BP Pulse Ox O2 Del Method O2 Flow Rate 12/30/21 16:30 36.8 C 70 20 175/125 H 97 Nasal Cannula 2 PG Care Time/CCT Total # of Minutes Spent Total Time Spent with Patient: Total time spent is greater than 50% in coordination of care (as documented) at patient's floor/unit and/or counseling patient: Coding Level of Care Code 17607 Initial Inpt Care Lvl 3 Diagnoses CVA (cerebral vascular accident) I63.9 Bilateral edema of lower extremity R60.0 Obesity E66.9 Sinus tachycardia R00.0 Sinus bradycardia R00.1 Depression F32.9 Venous insufficiency I87.2 Paroxysmal atrial tachycardia I47.1 HTN (hypertension) I10
--- NOTE | 2021-12-30 17:55 | XRay Report ---
XR chest 1V portable CLINICAL HISTORY: Stroke Like Symptoms TECHNIQUE: Single frontal radiograph of the chest was obtained. Comparison: Comparison is made to chest radiograph 12/24/2021 FINDINGS: No lines and tubes are seen. Cardiomegaly is noted. Prominence and cephalization of the vasculature i s seen. No evidence of pleural effusion or pneumothorax. IMPRESSION: Cardiomegaly and mild pulmonary edema. ACT 112: Negative or not required by law. Electronically signed by: Alfa Barker M.D. 12/30/2021 5:54 PM
[2021-12-30 18:23] LABS: Troponin I High Sensitivity 6.7 pg/ml (0-14)
[2021-12-30] MEDS ORDERED: PHARMACIST DISCHARGE MED REC CONSULT PRN (19:06)
[2021-12-30] MEDS ORDERED: LABETALOL HCL IV 5 MG/ML 20ML IV PRN (19:06)
[2021-12-30] MEDS ORDERED: ICU PROTOCOL FOR HYPERGLYCEMIA PRN (19:06)
--- NOTE | 2021-12-30 19:42 | Critical Care Consultation ---
Date of Consultation December 30, 2021 Assessment & Plan (1) Admitted to intensive care unit: Reason Critically Ill: 76-year-old female with acute ischemic CVA with LEFT- sided facial droop and LEFT upper extremity weakness. She status post TNKase administration and requiring close hemodynamic monitoring status post thrombolytic therapy NEURO - * CAM ICU: NEGATIVE * Acute CVA: * CT/CTA Head/Neck w/o acute findings. * s/p TNKase. * w/ residual LEFT sided facial droop and LUE weakness. * LLE weakness has been improving. * Failed her swallow study initially. Will keep NPO overnight. * Permissive HTN overnight. Responded well to IV Labetalol in the ED. * f/u MRI ordered. * AM Echo. * Neuro consult CARDIAC/VASCULAR - * HTN: * Patient reports missing her AM dose of Metoprolol. * Will utilize PRN Labetalol in the interim * Allow for permissive HTN overnight. * Monitor on telemetry. RESPIRATORY - * Patient with cough but no distress or hypoxia. * Suspect degree of aspiration. * AMEGAN: * Home CPAP settings. GI/NUTRITION - * NPO until repeat swallow eval. RENAL/LYTES - * No significant electrolyte derangements. * IVF: NSS@50mL/hr - * Moncada in place - Strict I&Os. ENDO - * BSGs per unit protocol. ISS --> gtt per unit policy. HEME - * Monitor for s/s bleeding s/p TNKase administration. ID - * No concerns for infection at this time. LINES/IV ACCESS - * PIVs x2 DVT PROPHYLAXIS - * Hold on chemoprophylaxis s/p TNKase administration * SCDs I have personally spent 45 minutes of critical care time in the direct management of this patient. This is a life/limb threatening event. This includes time spent evaluating patient, direct bedside care, chart review, placing orders, interpretation of diagnostic studies, discussion with consultants, patient, and family members, as well as other required patient management activities. This time is exclusive of all separately billable procedures, and teaching time and separate from and in addition to any other critical care service time. Thank you for allowing us to participate in the care of this patient. Please refer to my attending physician's documentation for any further recommendations. (2) Acute cerebrovascular accident (CVA): (3) Acute ischemic stroke: (4) Dyslipidemia: (5) Obesity: (6) Hyperglycemia: (7) HTN (hypertension): (8) Paroxysmal atrial tachycardia: History of Present Illness Attending Physician: Edi Preciado MD History of Present Illness Patient is a 76-year-old female with a significant past medical history of hypertension, paroxysmal atrial tachycardia, venous insufficiency, depression, h yperglycemia, obesity, and dyslipidemia. Patient has been complaining of some neck discomfort over the past few weeks. Otherwise, she has been at her typical state of health. This afternoon, patient was noted to be acting strange. Her found her in the kitchen with a facial droop and LEFT-sided weakness. He contacted EMS. Patient was made a stroke alert on evaluation. She was dysarthric and with LEFT upper and lower extremity weakness as well as LEFT- sided facial droop. She was evaluated and had unremarkable CT and CTA findings and deemed appropriate to receive TNKase. Patient received TNKase at 1649. Patient has been having slowly improving symptoms since administration. She is admitted to the ICU for ongoing evaluation and management. Upon evaluation, patient is awake, alert, and oriented. She is dysarthric, but is able to communicate enough to obtain some degree of history. She currently complains of some ongoing neck discomfort which has been there for the past few weeks. She feels as though the strength in her leg has improved and her LEFT upper extremity is getting better as well. Otherwise, she offers no complaints at this time. Allergies Allergy/AdvReac Type Severity Reaction Status Date / Time erythromycin base AdvReac Intermediate Nausea Verified 12/30/21 16:41 meperidine AdvReac Intermediate NAUSEA Verified 12/30/21 16:41 Home Medications Medication Instructions Recorded Confirmed Type ascorbic acid (vitamin C) 1,000 mg 1,000 mg PO HS 03/15/18 12/30/21 History tablet (Vitamin C) calcium carbonate 500 mg-vitamin 1 tab PO BID 03/15/18 12/30/21 History D3 5 mcg (200 unit) tablet (Os-Pan 500 + D3) celecoxib 200 mg capsule (Celebrex) 200 mg PO DAILY PRN Pain 03/15/18 12/30/21 History multivitamin 1 tab PO QAM 03/15/18 12/30/21 History omega 5-dpu-wtx-fish oil 1,000 mg 1 cap PO BID 10/03/20 12/30/21 History (120 mg-180 mg) capsule (Fish Oil) metoprolol succinate 25 mg 25 mg PO .COMPLEX #180 tabs 05/17/21 12/30/21 Rx tablet,extended release 24 hr citalopram 40 mg tablet 40 mg PO QPM #90 tabs 08/21/21 12/30/21 Rx cyanocobalamin (vitamin B-12) 100 1,000 mcg PO PM 08/29/21 12/30/21 History mcg tablet potassium chloride 20 mEq 20 meq PO QAM 08/29/21 12/30/21 History tablet,extended release(part/cryst) (Klor-Con M) triamterene 37.5 1 tab PO QAM 08/29/21 12/30/21 History mg-hydrochlorothiazide 25 mg tablet pravastatin 80 mg tablet 80 mg PO HS 10/11/21 12/30/21 History Patient History Medical History Anxiety Depression HTN (hypertension) controlled, stable per pt Morbid obesity with BMI of 40.0-44.9, adult Neck pain Chronic s/p 2018 fall (left sided movement) Osteopenia Palpitations Paroxysmal atrial tachycardia follows with [facility] Pulmonary hypertension Borderline pulmonary hypertension on 2018 echo; PASP 44 mHg Sinus bradycardia follows with [facility], "preferable to recurrent atrial dysrhythm ia/palpitations" Sleep apnea CPAP-compliant Venous insufficiency Surgical History H/O section x2 H/O hernia repair History of cataract surgery R/L History of colonoscopy 2021 Hx of breast reduction, elective S/P breast biopsy benign S/P total hip arthroplasty right S/P total knee arthroplasty left S/P tubal ligation Per records, pt unsure S/P wrist surgery right Status post laparoscopy Family History Mother Hypertension Father Myocardial infarction Pacemaker Grandmother (Paternal) Diabetes Sister Cerebral palsy Family/Other History of anesthesia reaction GRANDDAUGHTER AGE 6-7 SLOW TO WAKE Aunt Diabetes Other Family history non-contributory Social History Smoking Status: Never smoker Second Hand Exposure: No; Hx Alcohol Use: No Hx Substance Use: No Preferred Language: Tajik Communication Ability: Effective Turkey Boner Required: No Beliefs That Will Affect Care: None Current Living Situation: Spouse current occupational status: retired Feels Safe at Home: Yes Assistive Devices: Cane, CPAP and Glasses Review of Systems Review of Systems: A complete 10 point review of systems was reviewed with the patient with pertinent positives and negatives as per history of present illness. All else were negative. Physical Exam Physical Exam: VITAL SIGNS - Vital signs and nursing notes were reviewed. GENERAL - 76-year-old female appearing her stated age who is in no acute distress. Dysarthric. HEAD - Normocephalic, Atraumatic. No Luna's Sign or Raccoon's Eyes. No depressed skull fractures palpable. EYES - PERRL with EOMI bilaterally. Sclera anicteric. EARS - No deformities of external structures noted on gross examination bilaterally. NOSE - Midline and without cyanosis. No epistaxis or purulent drainage noted. MOUTH/OROPHARYNX - Without perioral cyanosis. Buccal mucosa pink and moist. Good dentition noted. NECK - Neck with FROM. Supple to palpation. No nuchal rigidity. LUNGS - Chest wall symmetric without accessory muscle use, intercostals retractions, or central cyanosis. Normal vesicular breath sounds CTA B/L. No wheezes, rales, or rhonchi appreciated. CARDIAC - RRR with S1/S2. No murmur, rubs, or gallops appreciated. ABDOMEN - Abdominal contour obese without pulsations or visible masses. BS normoactive all four quadrants. No tenderness, palpable masses, hepatosplenomegaly, or ascites noted. EXTREMITIES - No pretibial edema present. +3/5 radial and dorsalis pedis pulses palpated throughout. Decreased ROM of the LUE. Clinical Radiologist strength +4/5 on the LEFT and +5/5 on the RIGHT. FROM with equal strength of the bilateral lower extremities. NEUROLOGIC - LEFT sided facial droop. Dysarthria. Word finding. LUE weakness and limited ROM. Decreased fine motor skill of the LUE. PSYCH - A&Ox3 and cooperates fully with examiner. Pt is very pleasant and interacts well with examiner. Results & Data Results & Data ([facility]) Vital Signs (Past 12 Hours) Vital Signs Temp Pulse Pulse Resp BP BP Pulse Ox 12/30/21 18:50 36.5 C 81 20 162/106 H 98 12/30/21 18:15 12/30/21 18:33 72 20 95 12/30/21 18:18 71 20 157/72 H 98 12/30/21 18:20 72 20 157/72 H 94 12/30/21 18:03 70 20 162/82 H 97 12/30/21 17:48 75 20 156/85 H 98 12/30/21 17:33 72 18 146/78 H 98 12/30/21 17:18 80 20 142/75 H 97 12/30/21 17:03 77 20 152/80 H 97 12/30/21 16:30 36.8 C 70 20 175/125 H 97 O2 Del Method O2 Flow Rate 12/30/21 18:50 Nasal Cannula 2 12/30/21 18:15 Nasal Cannula 12/30/21 18:33 Nasal Cannula 2 12/30/21 18:18 Nasal Cannula 2 12/30/21 18:20 Nasal Cannula 2 12/30/21 18:03 Nasal Cannula 2 12/30/21 17:48 Nasal Cannula 2 12/30/21 17:33 Nasal Cannula 2 12/30/21 17:18 Nasal Cannula 2 12/30/21 17:03 Nasal Cannula 2 12/30/21 16:30 Nasal Cannula 2 Coding Level of Care Code Critical Care 1st 30-74 mins Diagnoses Admitted to intensive care unit Z78.9 Acute cerebrovascular accident (CVA) I63.9 Acute ischemic stroke I63.9 Dyslipidemia E78.5 Obesity E66.9 Hyperglycemia R73.9 HTN (hypertension) I10 Paroxysmal atrial tachycardia I47.1 Time Spent (min) 45
[2021-12-31] MEDS ORDERED: ACETAMINOPHEN 1,000 MG/100 ML VIAL IV STA (03:52)
--- NOTE | 2021-12-31 03:53 | Communication Note ---
Date of Service: December 31, 2021 0350: Patient evaluated bedside. She complains of a headache at this time. Repeat exam demonstrates persistent LEFT upper extremity weakness with some decreased range of motion of the LEFT upper extremity. Persistent LEFT facial droop and dysarthria. Orders placed for CT head without contrast and IV Tylenol. CT head demonstrates no bleeding, thankfully. MRI is still pending at this time. I have personally spent 20 minutes of critical care time in the direct management of this patient. This is a life/limb threatening event. This includes time spent evaluating patient, direct bedside care, chart review, placing orders, interpretation of diagnostic studies, discussion with consultants, patient, and family members, as well as other required patient management activities. This time is exclusive of all separately billable procedures, and teaching time and separate from and in addition to any other critical care service time. Coding Level of Care Code Critical Care 1st 30-74 mins Time Spent (min) 20
--- NOTE | 2021-12-31 07:00 | Critical Care Progress Note ---
Date of Service December 31, 2021 Assessment & Plan (1) Admitted to intensive care unit: Plan: Reason Critically Ill: 76-year-old female with acute ischemic CVA with LEFT- sided facial droop and LEFT upper extremity weakness. She status post TNKase administration and requiring close hemodynamic monitoring status post thrombolytic therapy NEURO - * CAM ICU: NEGATIVE * Acute CVA * Symptom onset at 3:09 PM on 12/30, TNKase administered 5:02 PM on 12/30 * Admission head/neck CT/CTA negative, repeat head CT on 12/31 negative * Some improvement in extremity weakness, dysarthria after TNKase- persistent LUE weakness and L facial droop * MRI 12/31- multiple small foci of acute infarction in R frontal, parietal, temporal lobes * Echocardiogram in AM pending * A1C, lipid profile pending * Neurology consulted * PT/OT ordered for after TNKase monitoring concludes CARDIAC/VASCULAR - * HTN: * Currently normotensive, stable HR 70s in sinus rhythm * Labetalol PRN for elevated BP beyond permissive HTN 180/110 given TPA administration * Monitor on telemetry. RESPIRATORY - * Patient with cough and wheezing but no distress or hypoxia. * Suspect degree of aspiration- CXR ordered this AM * MAEGAN: * Home CPAP settings. GI/NUTRITION - * NPO until repeat swallow evaluation RENAL/ELECTROLYTES - * Hyponatremia Na 131- likely due to SIADH/cerebral salt wasting in aftermath of stroke, continue monitoring * ICU electrolyte repletion protocol - * Moncada in place - Strict I&Os. ENDO - * BSGs per unit protocol. ISS --> gtt per unit policy. HEME - * Monitor for s/s bleeding s/p TNKase administration * Low concern for any acute bleeding at this time ID - * No concerns for infection at this time LINES/IV ACCESS - * PIVs x2 DVT PROPHYLAXIS - * Hold on chemoprophylaxis s/p TNKase administration * SCDs Pt has been hemodynamically stable since TNKase administration. If pt remains st able at 24 hours s/p TNKase administration, will be able to downgrade from ICU. (2) Acute cerebrovascular accident (CVA): (3) Acute ischemic stroke: (4) Dyslipidemia: (5) Obesity: (6) Hyperglycemia: (7) HTN (hypertension): (8) Paroxysmal atrial tachycardia: Admission and Anticipated Discharge Date Admission Date: December 30, 2021 Supervising Physician Co-Signing Physician Notes Dr. Casanova was resident physician during care of patient. I separately evaluated patient for palumbo portions of the history and the exam. I was present during the critical portion of medical decision making, and I discussed the case with the resident. I generally agree with the findings and plan. Anticipate routine stroke care. Stable for downgrade out of ICU after 24 hours status post tPA/TNKase. Subjective Overnight events- received labetalol 10 mg IV for BP 228/176 around 2300, BP improved. Around 0350, pt experienced headache and repeat exam demonstrated persistent LUE weakness, L facial droop and dysarthria. Pt received IV Tylenol and head CT/MRI ordered- negative head CT, MRI demonstrated multiple small acute foci of infarction in R frontal, parietal, temporal lobes. On evaluation, pt states her headache has improved and dysarthria is slightly improving as well. Still endorses weakness and numbness of hands- states it is worse on L hand than R. Also reports some mild sore throat and wheezing, denies dyspnea or chest pain. Review of Systems Review of Systems: Per subjective Physical Exam Physical Exam: GENERAL - 76-year-old female appearing her stated age who is in no acute distress. Dysarthric. HEAD - Normocephalic, atraumatic EYES - PERRL with EOMI bilaterally. Sclera anicteric. EARS - No deformities of external structures noted on gross examination bilaterally. NOSE - Midline and without cyanosis. No epistaxis or purulent drainage noted. MOUTH/OROPHARYNX - Without perioral cyanosis. Buccal mucosa pink and moist. Good dentition noted. NECK - Neck with FROM. Supple to palpation. No nuchal rigidity. LUNGS - Chest wall symmetric without accessory muscle use, intercostals retractions, or central cyanosis. Normal vesicular breath sounds CTA B/L. +B/l expiratory wheezes of upper lung perkins present, no rales or rhonchi appreciated. CARDIAC - RRR with normal S1/S2. No murmur, rubs, or gallops appreciated. ABDOMEN - Soft, nontender, nondistended, no guarding or rebound EXTREMITIES - No pretibial edema present. b/l radial and dorsalis pedis pulses palpated throughout. Christmas Tree Farmer strength +4/5 on the LEFT with limited ROM and +5/5 on the RIGHT. FROM with equal strength of the bilateral lower extremities. NEUROLOGIC - L sided facial droop, dysarthria, LUE weakness and limited ROM as above. Decreased fine motor skill of the LUE. Cranial nerves 2-12 intact PSYCH - Alert and oriented to person and place, cooperates fully with examiner. Pt is pleasant and interacts well with examiner. Results & Data Results & Data ([facility]) Vital Signs (Past 12 Hours) Vital Signs Temp Pulse Pulse Resp BP BP Pulse Ox 12/31/21 06:32 36.9 C 76 20 138/68 94 12/31/21 05:03 36.9 C 69 18 130/55 L 95 12/31/21 03:03 36.9 C 69 20 140/75 97 12/31/21 02:03 36.9 C 79 20 177/79 H 95 12/31/21 01:03 36.9 C 72 20 155/61 H 95 12/31/21 00:15 74 17 93 12/31/21 00:01 71 15 93 12/31/21 00:01 150/67 H 12/31/21 00:00 74 20 92 12/30/21 23:45 73 19 92 12/30/21 23:31 72 20 91 12/30/21 23:31 181/88 H 12/30/21 23:30 73 24 91 12/30/21 23:15 73 21 92 12/30/21 23:01 76 14 94 12/30/21 23:01 216/74 H 12/30/21 23:00 75 23 94 12/30/21 22:52 215/107 H 12/30/21 22:52 80 21 93 12/30/21 22:45 71 19 96 12/30/21 22:34 200/128 H 12/30/21 22:34 67 17 98 12/30/21 22:32 69 19 97 12/30/21 22:32 232/129 H 12/30/21 22:31 69 21 96 12/30/21 22:31 228/176 H 12/30/21 22:30 70 15 96 12/30/21 22:15 70 12 97 12/30/21 22:01 199/115 H 12/30/21 22:01 70 24 98 12/30/21 22:00 67 21 98 12/30/21 21:46 67 24 98 12/30/21 21:46 201/95 H 12/30/21 21:45 67 22 98 12/30/21 21:31 181/83 H 12/30/21 21:31 71 21 99 12/30/21 21:30 70 19 98 12/30/21 21:16 180/92 H 12/30/21 21:16 68 25 H 99 12/30/21 21:15 69 17 99 12/30/21 21:01 68 17 98 12/30/21 21:01 136/93 12/30/21 21:00 68 17 98 12/30/21 20:46 71 20 99 12/30/21 20:46 170/105 H 12/30/21 20:45 64 20 99 12/30/21 20:31 68 18 98 12/30/21 20:31 147/69 H 12/30/21 20:30 70 19 98 12/30/21 20:16 72 24 98 12/30/21 20:16 179/107 H 12/30/21 20:15 72 20 97 12/30/21 20:01 134/89 12/30/21 20:01 67 22 98 12/30/21 20:00 68 22 98 12/31/21 00:33 36.9 C 71 20 158/66 H 95 12/31/21 00:03 36.9 C 73 18 150/67 H 95 12/30/21 23:33 36.9 C 74 18 181/88 H 95 12/30/21 23:03 36.9 C 71 18 228/176 H 95 12/30/21 22:33 69 21 96 12/30/21 22:33 36.9 C 69 18 200/128 H 95 12/30/21 22:03 36.9 C 71 18 199/115 H 95 12/30/21 21:33 36.9 C 70 18 181/83 H 95 12/30/21 21:03 36.9 C 69 18 136/93 98 12/30/21 20:33 36.9 C 70 20 170/105 H 95 12/30/21 20:03 36.9 C 71 18 147/69 H 95 12/30/21 19:33 36.9 C 71 20 165/93 H 95 12/30/21 19:06 36.9 C 73 20 163/75 H 95 12/30/21 19:03 36.9 C 69 20 163/75 H 94 O2 Del Method O2 Flow Rate 12/31/21 06:32 Room Air 12/31/21 05:03 Room Air 12/31/21 03:03 Room Air 12/31/21 02:03 Room Air 12/31/21 01:03 Room Air 12/31/21 00:15 12/31/21 00:01 12/31/21 00:01 12/31/21 00:00 12/30/21 23:45 12/30/21 23:31 12/30/21 23:31 12/30/21 23:30 12/30/21 23:15 12/30/21 23:01 12/30/21 23:01 12/30/21 23:00 12/30/21 22:52 12/30/21 22:52 12/30/21 22:45 12/30/21 22:34 12/30/21 22:34 12/30/21 22:32 12/30/21 22:32 12/30/21 22:31 12/30/21 22:31 12/30/21 22:30 12/30/21 22:15 12/30/21 22:01 12/30/21 22:01 12/30/21 22:00 12/30/21 21:46 12/30/21 21:46 12/30/21 21:45 12/30/21 21:31 12/30/21 21:31 12/30/21 21:30 12/30/21 21:16 12/30/21 21:16 12/30/21 21:15 12/30/21 21:01 12/30/21 21:01 12/30/21 21:00 12/30/21 20:46 12/30/21 20:46 12/30/21 20:45 12/30/21 20:31 12/30/21 20:31 12/30/21 20:30 12/30/21 20:16 12/30/21 20:16 12/30/21 20:15 12/30/21 20:01 12/30/21 20:01 12/30/21 20:00 12/31/21 00:33 Room Air 12/31/21 00:03 Room Air 12/30/21 23:33 Room Air 12/30/21 23:03 Room Air 12/30/21 22:33 2 12/30/21 22:33 Room Air 12/30/21 22:03 12/30/21 21:33 Room Air 12/30/21 21:03 Room Air 12/30/21 20:33 Room Air 12/30/21 20:03 Room Air 12/30/21 19:33 Room Air 12/30/21 19:06 Room Air 12/30/21 19:03 Room Air Resident Activity Tracking Resident Involvement: Resident Care Provided Care Provided: Adult Hospital Medicine
--- NOTE | 2021-12-31 07:13 | CT Scan Report ---
CT OF THE HEAD WITHOUT CONTRAST CLINICAL HISTORY: Headache s/p TNKase COMPARISON STUDY: Head CT and CTA of the head December 30, 2021. CT DOSE: 2260.50 mGy.cm TECHNIQUE: Helical axial images of the head were obtained without IV contrast. Automated exposure con trol was utilized for the study. A dose lowering technique was utilized adhering to the principles o f ALARA. FINDINGS: This study is mildly compromised by motion artifact No acute intracranial hemorrhage, midli ne shift or mass effect is present. The ventricular system is unremarkable. White matter hypodensitie s are unchanged and suggest small vessel disease. The basal cisterns are patent. No extra-axial colle ctions are present. There are no findings to suggest acute dural sinus thrombosis or acute territoria l infarct. No significant calvarial abnormalities are present. Visualized portions of the sinuses and mastoid air cells are clear. IMPRESSION: No acute intracranial findings. Exam mildly compromised by motion artifact. ACT 112: Negative or not required by law. Electronically signed by: Bandar Leong M.D. 12/31/2021 7:11 AM
--- NOTE | 2021-12-31 07:14 | Hospitalist Progress Note ---
Date of Service December 31, 2021 Assessment & Plan (1) CVA (cerebral vascular accident): Plan: Vi Lopez is a 76-year-old female with a past medical history of hyperglycemia, paroxysmal atrial tachycardia, hypertension, and hyperlipidemia who presented to the emergency department for evaluation of strokelike symptoms. Patient arrived as a stroke alert. Acute CVA, suspicious for MCA territory CVA CTA/CThead/neck: 1. No acute intracranial hemorrhage, evidence of acute territorial infarction, or other acute intracranial disease process.2. No occlusion, hemodynamically significant stenosis, or dissection in the major cervical arteries. 3. No occlusion, hemodynamically significant stenosis, aneurysm, dissection, or arteriovenous malformation in the major intracranial arteries. - L side weakness, arm weakness, facial droop, dysarthria at 1509 - Was starting to improve at ER assessment, still arm drift but leg improving slowly and with slurred speech - Recieved TNKase at 1649 - Slowly improving Troponin pending, hemoglobin normal Creatinine: Normal Admitted to the ICU for post TNKase monitoring No lab draws for 24 hours post TNKase Speech eval, PT/OT Echo pending MRI Multiple small foci of acute infarction within the right frontal, parietal and temporal lobes. No mass effect. No evidence for hemorrhage. Post TNKase blood pressure goal below 180/105. Patient had brisk response from 175/125 to 142/75 following initial 10mg dose of labetalol, would use half dose first if additional required / doing well, speech deficits still present but improving. Some qualitative decrease to soft touch in left arm. Does have good strength overall.LDL 84, switch pravastatin to atorvastatin 80. Continue aspirin. Echo completed, not yet read. Paroxysmal atrial tachycardia - Home MTP held, resume when able to take PO - Adequate rate control at admit No history of A. fib Hypertension triamterenehydrochlorothiazide held while n.p.o. labetelol as noted, permissive HTN period Hyperlipidemia Strong family history of CAD, no personal history of CAD. Dobutamine stress echo October 2020 negative Lipid panel pending Previously on pravastatin 80 mg --> atorva 80 Depression/anxiety Citalopram 40 mg [employer] held while n.p.o. Right knee arthritis Was pending right knee arthroplasty 01/09/2022 Pulmonary hypertension Borderline noted in 2017, no symptoms, no treatment for this [employer] Sleep apnea Compliant with CPAP DVT prophylaxis: SCDs, pharmacal prophylaxis contraindicated post tenecteplase Diet: N.p.o. pending speech eval Disposition: ICU post TNKase monitoring (2) Bilateral edema of lower extremity: (3) Obesity: (4) Sinus tachycardia: (5) Sinus bradycardia: (6) Depression: (7) Venous insufficiency: (8) Paroxysmal atrial tachycardia: (9) HTN (hypertension): Admission and Anticipated Discharge Date Admission Date: December 30, 2021 Subjective Doing well at bedside in the morning. No headache, no chest pain, chest pressure, lightheadedness, dizziness, shortness of breath. Continues to have some difficulty speaking, although improved from prior. Strength in left side has greatly improved, still has some qualitative weakness and decree sensation to touch in left hand but greatly improved and not completely absent. Received vital overnight for hypertension, blood pressure adequately controlled on morning reassessment. Physical Exam Physical Exam: General: A&Ox3. NAD. Cooperative. Dysarthria appreciable but improved Pulm: CTAB A&P. -wheezes, -rales, -rhonchi. Symmetrical chest rise. No increase in work of breathing. No respiratory distress. Cardiac: RRR, -mrg. Radial pulses intact and symmetrical. Abdominal: Nontender, nondistended, soft. BS present. CRANIAL NERVES: II: Pupils equal and reactive, no relative afferent pupillary defect, no VF cuts III, IV, : EOM intact, no gaze preference or deviation, no nystagmus. V: normal sensation in V1, V2, and V3 segments bilaterally VII: Improved but residual left-sided facial droop. Cheek puff limited by left air escape. VIII: normal hearing to speech IX, X: no uvular deviation XI: 5/5 shoulder shrug bilaterally XII: midline tongue protrusion MOTOR: RUE: 5/5 Shoulder internal rotation, external rotation, flexion, extension, abduction, adduction 5/5 Elbow flexion/extension, wrist flexion/extension 5/5 public relations senior associate strength, finger flexion/extension, interosseus LUE: 4+/5 Shoulder flexion 4+/5 Elbow flexion/extension, wrist flexion/extension 4+/5 public relations senior associate strength, finger flexion/extension, interosseus RLE: 5/5 to hip flexion/extension, knee flexion/extension, ankle dorsiflexion/plantarflexion LLE: 4+/5 to hip flexion/extension, knee flexion, ankle dorsiflexion/plantarflexion REFLEXES: 2/4 patellar DTR without asymmetry. no clonus SENSORY: Normal to touch in upper and lower extremities, some qualitative left-sided decrease in upper extremity to soft touch Results & Data Results & Data ([facility]) Vital Signs (Past 12 Hours) Vital Signs Temp Pulse Pulse Resp BP BP Pulse Ox 12/31/21 07:03 37 C 68 18 133/80 95 12/31/21 06:32 36.9 C 76 20 138/68 94 12/31/21 05:03 36.9 C 69 18 130/55 L 95 12/31/21 03:03 36.9 C 69 20 140/75 97 12/31/21 02:03 36.9 C 79 20 177/79 H 95 12/31/21 01:03 36.9 C 72 20 155/61 H 95 12/31/21 00:15 74 17 93 12/31/21 00:01 71 15 93 12/31/21 00:01 150/67 H 12/31/21 00:00 74 20 92 12/30/21 23:45 73 19 92 12/30/21 23:31 72 20 91 12/30/21 23:31 181/88 H 12/30/21 23:30 73 24 91 12/30/21 23:15 73 21 92 12/30/21 23:01 76 14 94 12/30/21 23:01 216/74 H 12/30/21 23:00 75 23 94 12/30/21 22:52 215/107 H 12/30/21 22:52 80 21 93 12/30/21 22:45 71 19 96 12/30/21 22:34 200/128 H 12/30/21 22:34 67 17 98 12/30/21 22:32 69 19 97 12/30/21 22:32 232/129 H 12/30/21 22:31 69 21 96 12/30/21 22:31 228/176 H 12/30/21 22:30 70 15 96 12/30/21 22:15 70 12 97 12/30/21 22:01 199/115 H 12/30/21 22:01 70 24 98 12/30/21 22:00 67 21 98 12/30/21 21:46 67 24 98 12/30/21 21:46 201/95 H 12/30/21 21:45 67 22 98 12/30/21 21:31 181/83 H 12/30/21 21:31 71 21 99 12/30/21 21:30 70 19 98 12/30/21 21:16 180/92 H 12/30/21 21:16 68 25 H 99 12/30/21 21:15 69 17 99 12/30/21 21:01 68 17 98 12/30/21 21:01 136/93 12/30/21 21:00 68 17 98 12/30/21 20:46 71 20 99 12/30/21 20:46 170/105 H 12/30/21 20:45 64 20 99 12/30/21 20:31 68 18 98 12/30/21 20:31 147/69 H 12/30/21 20:30 70 19 98 12/30/21 20:16 72 24 98 12/30/21 20:16 179/107 H 12/30/21 20:15 72 20 97 12/30/21 20:01 134/89 12/30/21 20:01 67 22 98 12/30/21 20:00 68 22 98 12/31/21 00:33 36.9 C 71 20 158/66 H 95 12/31/21 00:03 36.9 C 73 18 150/67 H 95 12/30/21 23:33 36.9 C 74 18 181/88 H 95 12/30/21 23:03 36.9 C 71 18 228/176 H 95 12/30/21 22:33 69 21 96 12/30/21 22:33 36.9 C 69 18 200/128 H 95 12/30/21 22:03 36.9 C 71 18 199/115 H 95 12/30/21 21:33 36.9 C 70 18 181/83 H 95 12/30/21 21:03 36.9 C 69 18 136/93 98 12/30/21 20:33 36.9 C 70 20 170/105 H 95 12/30/21 20:03 36.9 C 71 18 147/69 H 95 12/30/21 19:33 36.9 C 71 20 165/93 H 95 O2 Del Method O2 Flow Rate 12/31/21 07:03 Room Air 12/31/21 06:32 Room Air 12/31/21 05:03 Room Air 12/31/21 03:03 Room Air 12/31/21 02:03 Room Air 12/31/21 01:03 Room Air 12/31/21 00:15 12/31/21 00:01 12/31/21 00:01 12/31/21 00:00 12/30/21 23:45 12/30/21 23:31 12/30/21 23:31 12/30/21 23:30 12/30/21 23:15 12/30/21 23:01 12/30/21 23:01 12/30/21 23:00 12/30/21 22:52 12/30/21 22:52 12/30/21 22:45 12/30/21 22:34 12/30/21 22:34 12/30/21 22:32 12/30/21 22:32 12/30/21 22:31 12/30/21 22:31 12/30/21 22:30 12/30/21 22:15 12/30/21 22:01 12/30/21 22:01 12/30/21 22:00 12/30/21 21:46 12/30/21 21:46 12/30/21 21:45 12/30/21 21:31 12/30/21 21:31 12/30/21 21:30 12/30/21 21:16 12/30/21 21:16 12/30/21 21:15 12/30/21 21:01 12/30/21 21:01 12/30/21 21:00 12/30/21 20:46 12/30/21 20:46 12/30/21 20:45 12/30/21 20:31 12/30/21 20:31 12/30/21 20:30 12/30/21 20:16 12/30/21 20:16 12/30/21 20:15 12/30/21 20:01 12/30/21 20:01 12/30/21 20:00 12/31/21 00:33 Room Air 12/31/21 00:03 Room Air 12/30/21 23:33 Room Air 12/30/21 23:03 Room Air 09/04/22 22:33 2 12/30/21 22:33 Room Air 12/30/21 22:03 12/30/21 21:33 Room Air 12/30/21 21:03 Room Air 12/30/21 20:33 Room Air 12/30/21 20:03 Room Air 12/30/21 19:33 Room Air PG Care Time/CCT Total # of Minutes Spent Total Time Spent with Patient: Total time spent is greater than 50% in coordination of care (as documented) at patient's floor/unit and/or counseling patient: Coding Level of Care Code 62244 Subseq Hosp Care Lvl 2 Diagnoses CVA (cerebral vascular accident) I63.9 Bilateral edema of lower extremity R60.0 Obesity E66.9 Sinus tachycardia R00.0 Sinus bradycardia R00.1 Depression F32.9 Venous insufficiency I87.2 Paroxysmal atrial tachycardia I47.1 HTN (hypertension) I10
[2021-12-31] MEDS ORDERED: CHLORASEPTIC 1.4% SOLN 180 ML BTL MT PRN (07:30)
--- NOTE | 2021-12-31 07:30 | Electrocardiogram Report ---
Test Reason : Blood Pressure : / mmHG Vent. Rate : 072 BPM Atrial Rate : 394 BPM P-R Int : 000 ms QRS Dur : 092 ms QT Int : 390 ms P-R-T Axes : 000 041 039 degrees QTc Int : 427 ms Poor data quality, interpretation may be adversely affected Sinus rhythm Low voltage QRS Abnormal ECG Confirmed by Hugh Carvalho ([id number]) on 12/31/2021 7:29:46 AM Referred By: REFERRED SELF Confirmed By:Sean Carvalho
--- NOTE | 2021-12-31 07:43 | Magnetic Resonance Report ---
MRI OF THE BRAIN WITHOUT CONTRAST CLINICAL HISTORY: Cerebrovascular accident. COMPARISON STUDY: Head CT and CTA of the head December 31, 2019. Head CT December 31, 2021. TECHNIQUE: Utilizing a 1.5 Stacey magnet and dedicated coil, multiplanar, multiecho imaging of the bra in was performed without IV contrast. FINDINGS: There are multiple small foci of restricted diffusion within the right frontal, parietal an d temporal lobes which measure up to 1.8 x 1.4 cm. These represent foci of acute infarction. There is no mass effect. Mild associated T2 hyperintensity is noted. There is no evidence for hemorrhage. Morris tricular system is unremarkable. Basal cisterns are patent. White matter T2 hyperintense foci reflect small vessel disease. No intracranial masses identified on this unenhanced exam. There is no suspici ous calvarial replacement. No evidence for sinusitis. Orbits are unremarkable. IMPRESSION: Multiple small foci of acute infarction within the right frontal, parietal and temporal lobes. No mass effect. No evidence for hemorrhage. ACT 112: Negative or not required by law. Electronically signed by: Bandar Leong M.D. 12/31/2021 7:41 AM
--- NOTE | 2021-12-31 08:15 | XRay Report ---
XR chest 1V portable CLINICAL HISTORY: wheezing, admitted for stroke COMPARISON STUDY: Chest radiograph December 30, 2021. FINDINGS: Lung volumes are normal. Lungs are clear. There is no pneumothorax or pleural effusion. Car diomegaly is again noted. Mediastinal contours are normal. There is no evidence for pulmonary edema. IMPRESSION: No acute cardiopulmonary findings. ACT 112: Negative or not required by law. Electronically signed by: Bandar Leong M.D. 12/31/2021 8:14 AM
--- NOTE | 2021-12-31 09:34 | Billing Data ---
Date of Service December 31, 2021 Coding Level of Care Code 71326 Subseq Hosp Care Lvl 3
--- NOTE | 2021-12-31 10:44 | Neurology Consultation ---
Date of Consultation December 31, 2021 Assessment & Plan (1) Acute cerebrovascular accident (CVA): (2) Dysarthria: (3) Left hemiparesis: (4) HTN (hypertension): Plan this patient has suffered an acute right middle cerebral artery distribution CVA on December 30. It resulted in dysarthria and left beltran paresis. The patient received TNKase in the emergency room, with no Immediate discernible improvement. After looking at the MRI, it is possible that this stroke may have been a bigger than we think and "broken up" by the thrombolytic. She is left with a few very small strokes. There may be some mild improvement in her dysarthria and beltran paresis compared to admission ( patient feeling). This stroke was likely thrombotic in nature. Echocardiogram is pending. Risk factors include hypertension. Recommendations: 1. Continue thrombolytic protocol, which requires a CT scan noncontrast at 24 hours post thrombolytics. 2. Increase activity as able. The patient is getting physical, occupational, and speech therapy. 3. awaiting echocardiogram. 4. Awaiting hemoglobin A1c and lipid profile. 5. She is already on high-dose pravastatin. 6. Control blood pressure as you are doing, aiming for a mean arterial pressure of 95-100. 7. After 24 hours she should be put on antiplatelet medication. I would choose clopidogrel 75 milligrams daily ( no aspirin) overall, I spent a total of 70 minutes with this case including review of records, review of MRI films, direct evaluation the patient at bedside, and discussion of the case with the patient, , and son at bedside, RN at bedside, and Dr. Preciado, including differential diagnosis and treatment opt ions. History of Present Illness Reason for Consultation: Patient is a 76-year-old, who I was asked to see at the request of Enid Mason PA-C, for neurologic consultation regarding stroke. Requesting Physician: Enid Mason PA-C Attending Physician: Edi Preciado MD History of Present Illness This patient has a history of hypertension, pulmonary hypertension, chronic neck pain, sleep apnea on CPAP, and anxiety and depression. Prior to admission she was not on any anticoagulation or antiplatelet medication. She was on pravastatin 80 milligrams daily. Patient was in her usual state of health when she was sitting in the chair in the mid afternoon watching TV. She got up to go to the kitchen and when she got there she slumped some with some left-sided weakness and slurred speech. time last known well was approximately 1500 on December 30. She was brought to the emergency room December 30 at 16:30 , with a temperature 36.8, pulse 70 and regular, respiratory rate 20, blood pressure 175/125, and O2 saturation 97 percent. On neurologic examination she was awake alert and oriented and had a left facial weakness as well as weakness in the left arm and leg. She had dysarthria as well. CT scan of the head was unremarkable. CT angiography of the head and neck were unremarkable. CBC and Chem profile were unremarkable. MRI of the brain showed multiple small acute strokes in the posterior frontal, parietal and temporal lobes on the right. Patient had moderate old small vessel ischemia and some mild generalized atrophy. I reviewed these films. She was evaluated and given TNKase per protocol. She is not certain if anything improved in the next couple of hours but she certainly did not get worse. Today she still has speech slurring / dysarthria but maybe a little more intelligible than yesterday. Her left-sided weakness is stable to slightly improved. She did have a headache last night and a CT scan of the head showed n o acute bleed. She does not have a headache this morning. Allergies Allergy/AdvReac Type Severity Reaction Status Date / Time erythromycin base AdvReac Intermediate Nausea Verified 12/30/21 16:41 meperidine AdvReac Intermediate NAUSEA Verified 12/30/21 16:41 Home Medications Medication Instructions Recorded Confirmed Type ascorbic acid (vitamin C) 1,000 mg 1,000 mg PO HS 03/15/18 12/30/21 History tablet (Vitamin C) calcium carbonate 500 mg-vitamin 1 tab PO BID 03/15/18 12/30/21 History D3 5 mcg (200 unit) tablet (Os-Pan 500 + D3) celecoxib 200 mg capsule (Celebrex) 200 mg PO DAILY PRN Pain 03/15/18 12/30/21 History multivitamin 1 tab PO QAM 03/15/18 12/30/21 History omega 4-kek-lrt-fish oil 1,000 mg 1 cap PO BID 10/03/20 12/30/21 History (120 mg-180 mg) capsule (Fish Oil) metoprolol succinate 25 mg 25 mg PO .COMPLEX #180 tabs 05/17/21 12/30/21 Rx tablet,extended release 24 hr citalopram 40 mg tablet 40 mg PO QPM #90 tabs 08/21/21 12/30/21 Rx cyanocobalamin (vitamin B-12) 100 1,000 mcg PO PM 08/29/21 12/30/21 History mcg tablet potassium chloride 20 mEq 20 meq PO QAM 08/29/21 12/30/21 History tablet,extended release(part/cryst) (Klor-Con M) triamterene 37.5 1 tab PO QAM 08/29/21 12/30/21 History mg-hydrochlorothiazide 25 mg tablet pravastatin 80 mg tablet 80 mg PO HS 10/11/21 12/30/21 History Patient History Medical History Anxiety Depression HTN (hypertension) controlled, stable per pt Morbid obesity with BMI of 40.0-44.9, adult Neck pain Chronic s/p 2018 fall (left sided movement) Osteopenia Palpitations Paroxysmal atrial tachycardia follows with [facility] Pulmonary hypertension Borderline pulmonary hypertension on 2018 echo; PASP 44 mHg Sinus bradycardia follows with [facility], "preferable to recurrent atrial dysrhythmia/palpitations" Sleep apnea CPAP-compliant Venous insufficiency Surgical History H/O section x2 H/O hernia repair History of cataract surgery R/L History of colonoscopy 2021 Hx of breast reduction, elective S/P breast biopsy benign S/P total hip arthroplasty right S/P total knee arthroplasty left S/P tubal ligation Per records, pt unsure S/P wrist surgery right Status post laparoscopy Family History (Updated 12/31/21 @ 10:30 by Elias Toscano MD) Mother , in her 60s of pancreatic cancer Hypertension Pancreatic cancer Father , in his 60s of an [place] Myocardial infarction Pacemaker Grandmother (Paternal) Diabetes Sister Cerebral palsy Family/Other History of anesthesia reaction GRANDDAUGHTER AGE 6-7 SLOW TO WAKE Aunt Diabetes Other Family history non-contributory Social History Smoking Status: Never smoker Second Hand Exposure: No; Hx Alcohol Use: No Hx Substance Use: No Preferred Language: Bangladeshi Communication Ability: Effective Entry Tech Required: No Beliefs That Will Affect Care: None Current Living Situation: Spouse current occupational status: retired Feels Safe at Home: Yes Assistive Devices: Cane, CPAP and Glasses Review of Systems Constitutional: + weakness; no fever and no fatigue Eyes: no diplopia, no eye pain and no worsening vision Ear, Nose, Mouth, Throat: no ear pain, no tinnitus, no hearing loss, no dizziness, no hoarseness and no dysphagia Respiratory: no cough and no dyspnea Cardiovascular: no chest pain, no palpitations and no lightheadedness Gastrointestinal: no abdominal pain, no nausea and no vomiting Genitourinary: no dysuria, no urinary frequency and no urinary incontinence Musculoskeletal: no back pain, no neck pain, no radicular pain, no joint pain and no myalgia Integumentary: no rash and no lesions Neurologic: + localized weakness and + abnormal speech; no gait abnormality, no generalized weakness, no tingling, no numbness, no tremor(s), no abnormal movements, no headache(s), no confusion and no memory loss Psychiatric: no depression, no irritability, no anxiety, no difficulty concentrating, no confusion and no hallucinations Endocrine: no fatigue and no flushing Hematologic / Lymphatic: no easy bleeding and no easy bruising Allergy / Immunological: no urticaria and no problem reported Exam (Neuro) Physical Exam: The patient is right-handed. The patient is awake, alert, and attentive. Speech is dysarthria, without any aphasia. The patient can name objects, repeat phrases, and has normal spontaneous speech. Mentation and thought processes are intact, with orientation to person, place and time, and normal fund of knowledge. Attention and concentration are normal. Mood and affect are normal and appropriate. General appearance and grooming are normal. Short and long-term memory seem intact to conversation Pupils are 3 mm bilaterally and reactive to light. Extraocular eye muscles are intact without nystagmus. Visual acuity and visual perkins seem normal grossly to confrontation. There are no deficits to sensation in the face in all 3 distributions of the fifth cranial nerve bilaterally. Corneal reflexes are positive bilaterally. There is a left facial droop. Hearing seems normal bilaterally. Palate moves well without asymmetry. There is normal sternocleidomastoid and trapezius (shoulder shrug) strength bilaterally. Tongue is midline with good strength bilaterally. Neck has a full range of motion without discomfort. Gait Not testable and stance sitting up in bed is difficult given her weakness. With outstretched arms there Mild drift on the left. There are no resting, postural, or action tremors. There is no ataxia with finger to nose testing. There is good facility in the hands. No other abnormal involuntary movements are noted. Motor strength is 5/5 diffusely in the right arm and leg both proximally and distally. Strength is 4/5 diffusely in the left arm and leg both proximally distally. This weakness therefore is mild. The limbs have good tone without rigidity or spasticity. There is no atrophy noted in the muscles. Muscle bulk is normal, there is no tenderness to palpation, no myotonia to percussion, and no fasciculations seen. Sensory examination is intact to touch and pin throughout all 4 limbs diffusely. Reflexes are 1/4 in the biceps, triceps, brachioradialis, quadriceps, and Achilles tendons bilaterally. There is no clonus bilaterally. Toes are downgoing with plantar stimulation on the right and upgoing plantar stimulation the left. Results & Data ([facility]) Vital Signs (Past 12 Hours) Vital Signs Temp Pulse Pulse Resp BP BP Pulse Ox 12/31/21 08:03 37 C 68 22 138/61 94 12/31/21 07:03 37 C 68 18 133/80 95 12/31/21 06:32 36.9 C 76 20 138/68 94 12/31/21 05:03 36.9 C 69 18 130/55 L 95 12/31/21 03:03 36.9 C 69 20 140/75 97 12/31/21 02:03 36.9 C 79 20 177/79 H 95 12/31/21 01:03 36.9 C 72 20 155/61 H 95 12/31/21 00:15 74 17 93 12/31/21 00:01 71 15 93 12/31/21 00:01 150/67 H 12/31/21 00:00 74 20 92 12/30/21 23:45 73 19 92 12/30/21 23:31 72 20 91 12/30/21 23:31 181/88 H 12/30/21 23:30 73 24 91 12/30/21 23:15 73 21 92 12/30/21 23:01 76 14 94 12/30/21 23:01 216/74 H 12/30/21 23:00 75 23 94 12/30/21 22:52 215/107 H 12/30/21 22:52 80 21 93 12/30/21 22:45 71 19 96 12/30/21 22:34 200/128 H 12/30/21 22:34 67 17 98 12/30/21 22:32 69 19 97 12/30/21 22:32 232/129 H 12/30/21 22:31 69 21 96 12/30/21 22:31 228/176 H 12/30/21 22:30 70 15 96 12/31/21 00:33 36.9 C 71 20 158/66 H 95 12/31/21 00:03 36.9 C 73 18 150/67 H 95 12/30/21 23:33 36.9 C 74 18 181/88 H 95 12/30/21 23:03 36.9 C 71 18 228/176 H 95 12/30/21 22:33 69 21 96 12/30/21 22:33 36.9 C 69 18 200/128 H 95 O2 Del Method O2 Flow Rate 12/31/21 08:03 Room Air 12/31/21 07:03 Room Air 12/31/21 06:32 Room Air 12/31/21 05:03 Room Air 12/31/21 03:03 Room Air 12/31/21 02:03 Room Air 12/31/21 01:03 Room Air 12/31/21 00:15 12/31/21 00:01 12/31/21 00:01 12/31/21 00:00 12/30/21 23:45 12/30/21 23:31 12/30/21 23:31 12/30/21 23:30 12/30/21 23:15 12/30/21 23:01 12/30/21 23:01 12/30/21 23:00 12/30/21 22:52 12/30/21 22:52 12/30/21 22:45 12/30/21 22:34 12/30/21 22:34 12/30/21 22:32 12/30/21 22:32 12/30/21 22:31 12/30/21 22:31 12/30/21 22:30 12/31/21 00:33 Room Air 12/31/21 00:03 Room Air 12/30/21 23:33 Room Air 12/30/21 23:03 Room Air 12/30/21 22:33 2 12/30/21 22:33 Room Air PG Care Time/CCT Total # of Minutes Spent Total Time Spent with Patient: Total time spent is greater than 50% in coordination of care (as documented) at patient's floor/unit and/or counseling patient: Coding Level of Care Code 74655 Initial Inpt Care Lvl 3 Diagnoses Acute cerebrovascular accident (CVA) I63.9 Dysarthria R47.1 Left hemiparesis G81.94 HTN (hypertension) I10 Time Spent (min) 70
--- NOTE | 2021-12-31 11:18 | XCELERA ---
[id number]
[2021-12-31] MEDS: ACETAMINOPHEN 500 MG TAB PO PRN (16:44)
[2021-12-31] MEDS ORDERED: ASPIRIN 81 MG ECTAB PO SCH (20:00)
[2021-12-31] MEDS ORDERED: PRAVASTATIN SOD 40 MG TAB PO SCH (21:00)
[2022-01-01 06:28] LABS: Estimated Average Glucose 120 mg/dl; Hemoglobin A1C 5.8 % (4.5-5.6)
[2022-01-01] MEDS: CLOPIDOGREL BISULFATE 75 MG TAB PO SCH (08:19)
[2022-01-01] MEDS: TRIAMTERENE/HCTZ 37.5/25MG TAB PO SCH (08:19)
[2022-01-01] MEDS ORDERED: ENOXAPARIN INJ 40 MG/0.4 ML SYR SQ SCH (09:00)
--- NOTE | 2022-01-01 09:44 | Hospitalist Progress Note ---
Date of Service January 01, 2022 Assessment & Plan (1) CVA (cerebral vascular accident): Plan: Vi Lopez is a 76-year-old female with a past medical history of hyperglycemia, paroxysmal atrial tachycardia, hypertension, and hyperlipidemia who presented to the emergency department for evaluation of strokelike symptoms. Patient arrived as a stroke alert. Acute CVA, suspicious for MCA territory CVA CTA/CThead/neck: 1. No acute intracranial hemorrhage, evidence of acute territorial infarction, or other acute intracranial disease process.2. No occlusion, hemodynamically significant stenosis, or dissection in the major cervical arteries. 3. No occlusion, hemodynamically significant stenosis, aneurysm, dissection, or arteriovenous malformation in the major intracranial arteries. - L side weakness, arm weakness, facial droop, dysarthria at 1509 - Was starting to improve at ER assessment, still arm drift but leg improving slowly and with slurred speech - Recieved TNKase at 1649 - Slowly improving Troponin pending, hemoglobin normal Creatinine: Normal Admitted to the ICU for post TNKase monitoring No lab draws for 24 hours post TNKase Speech eval, PT/OT Echo TTE: LV SF normal, mild concentric LVH, no significant valvular disease MRI Multiple small foci of acute infarction within the right frontal, parietal and temporal lobes. No mass effect. No evidence for hemorrhage. Post TNKase blood pressure goal below 180/105. Patient had brisk response from 175/125 to 142/75 following initial 10mg dose of labetalol, would use half dose first if additional required 01/01 doing well, speech deficits still present but improving. Some qualitative decrease to soft touch in left arm. Does have good strength overall. - LDL 84, switched pravastatin to atorvastatin 80. - Continue plaavix, aspirin DCed - PT/OT and placement pending Paroxysmal atrial tachycardia - Home MTP held, resume when able to take PO - Adequate rate control at admit No history of A. fib Hypertension triamterenehydrochlorothiazide held while n.p.o. labetelol as noted, permissive HTN period Hyperlipidemia Strong family history of CAD, no personal history of CAD. 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 Right knee arthritis Was pending right knee arthroplasty 01/09/2022 Pulmonary hypertension Borderline noted in 2018, no symptoms, no treatment for this MILL SET UP Sleep apnea Compliant with CPAP DVT prophylaxis: SCDs, pharmacal prophylaxis contraindicated post tenecteplase Diet: N.p.o. pending speech eval Disposition: ICU post TNKase monitoring (2) Bilateral edema of lower extremity: (3) Obesity: (4) Sinus tachycardia: (5) Sinus bradycardia: (6) Depression: (7) Venous insufficiency: (8) Paroxysmal atrial tachycardia: (9) HTN (hypertension): Admission and Anticipated Discharge Date Admission Date: December 30, 2021 Subjective Seen at the bedside. Doing well post TNKase. Continues to have good strength in her arm and leg, good sensation of arm and leg. Continues to have dysarthria, otherwise feels fairly well. Feels ready to engage in rehab and t dung the next steps. Denies chest pain, chest pressure, lightheadedness, dizziness, fever, chills, sweats, bleeding Review of Systems Review of Systems: All systems reviewed & are unremarkable except as noted in Subjective Physical Exam Physical Exam: General: A&Ox3. NAD. Cooperative. Dysarthria appreciable but again improved Pulm: CTAB A&P. -wheezes, -rales, -rhonchi. Symmetrical chest rise. No increase in work of breathing. No respiratory distress. Cardiac: RRR, -mrg. Radial pulses intact and symmetrical. Abdominal: Nontender, nondistended, soft. BS present. CRANIAL NERVES: II: Pupils equal and reactive, no relative afferent pupillary defect, no VF cuts III, IV, : EOM intact, no gaze preference or deviation, no nystagmus. V: normal sensation in V1, V2, and V3 segments bilaterally VII: Improved but residual left-sided facial droop. Cheek puff limited by left air escape. VIII: normal hearing to speech IX, X: no uvular deviation XI: 5/5 shoulder shrug bilaterally XII: midline tongue protrusion MOTOR: RUE: 5/5 Shoulder internal rotation, external rotation, flexion, extension, abduction, adduction 5/5 Elbow flexion/extension, wrist flexion/extension 5/5 packager head strength, finger flexion/extension, interosseus LUE: 4+/5 Shoulder flexion 4+/5 Elbow flexion/extension, wrist flexion/extension 4+/5 packager head strength, finger flexion/extension, interosseus RLE: 5/5 to hip flexion/extension, knee flexion/extension, ankle dorsiflexion/plantarflexion LLE: 4+/5 to hip flexion/extension, knee flexion, ankle dorsiflexion/plantarflexion REFLEXES: 2/4 patellar DTR without asymmetry. no clonus SENSORY: Normal to touch in upper and lower extremities, some qualitative left-sided decrease in upper extremity to soft touch Results & Data Results & Data ([facility]) Vital Signs (Past 12 Hours) Vital Signs Pulse Resp BP Pulse Ox 01/01/22 08:00 76 01/01/22 01:00 91 01/01/22 00:01 76 22 93 01/01/22 00:01 177/78 H 01/01/22 00:00 77 22 93 12/31/21 23:01 157/79 H 12/31/21 23:01 78 24 93 12/31/21 23:00 63 20 93 12/31/21 22:01 149/75 H 12/31/21 22:01 82 16 93 12/31/21 22:00 63 20 93 PG Care Time/CCT Total # of Minutes Spent Total Time Spent with Patient: Total time spent is greater than 50% in coordination of care (as documented) at patient's floor/unit and/or counseling patient: Coding Level of Care Code 33282 Subseq Hosp Care Lvl 2 Diagnoses CVA (cerebral vascular accident) I63.9 Bilateral edema of lower extremity R60.0 Obesity E66.9 Sinus tachycardia R00.0 Sinus bradycardia R00.1 Depression F32.9 Venous insufficiency I87.2 Paroxysmal atrial tachycardia I47.1 HTN (hypertension) I10
[2022-01-01] MEDS: ACETAMINOPHEN 500 MG TAB PO PRN (16:30)
[2022-01-01] MEDS ORDERED: ATORVASTATIN 40 MG TAB PO SCH (21:00)
--- NOTE | 2022-01-02 07:25 | Hospitalist Progress Note ---
Date of Service January 02, 2022 Assessment & Plan (1) CVA (cerebral vascular accident): Plan: Vi Lopez is a 76-year-old female with a past medical history of hyperglycemia, paroxysmal atrial tachycardia, hypertension, and hyperlipidemia who presented to the emergency department for evaluation of strokelike symptoms. Patient arrived as a stroke alert. Acute CVA, suspicious for MCA territory CVA CTA/CThead/neck: 1. No acute intracranial hemorrhage, evidence of acute territorial infarction, or other acute intracranial disease process.2. No occlusion, hemodynamically significant stenosis, or dissection in the major cervical arteries. 3. No occlusion, hemodynamically significant stenosis, aneurysm, dissection, or arteriovenous malformation in the major intracranial arteries. - L side weakness, arm weakness, facial droop, dysarthria at - Recieved TNKase Echo TTE: LV SF normal, mild concentric LVH, no significant valvular disease, no intracardiac thrombus MRI Multiple small foci of acute infarctions within the right frontal, parietal and temporal lobes. No mass effect. No evidence for hemorrhage. , switched pravastatin to atorvastatin 80. - Continue plaavix, aspirin DCed - PT/OT and placement pending Paroxysmal atrial tachycardia No history of A. fib, had been on metoprolol pre hospital, heart rates are slower, will follow Hypertension triamterenehydrochlorothiazide held while n.p.o. labetelol as noted, permissive HTN period Hyperlipidemia Strong family history of CAD, no personal history of CAD. Dobutamine stress echo October 2020 negative Lipid panel LDL 106 Previously on pravastatin 80 mg --> atorva 80 Depression/anxiety Citalopram 40 mg [employer] held while n.p.o. Right knee arthritis Was pending right knee arthroplasty 01/09/2022 Pulmonary hypertension Borderline noted in 2018, no symptoms, no treatment for this [employer] Sleep apnea Compliant with CPAP DVT prophylaxis: SCDs, pharmacal prophylaxis contraindicated post tenecteplase (2) Bilateral edema of lower extremity: (3) Obesity: (4) Sinus tachycardia: (5) Sinus bradycardia: (6) Depression: (7) Venous insufficiency: (8) Paroxysmal atrial tachycardia: (9) HTN (hypertension): Admission and Anticipated Discharge Date Admission Date: December 30, 2021 Review of Systems Review of Systems: Mild distress and fatigue no headache, no visual changes no speech or swallowing issues no chest pain, pressure or palpitations no shortness of breath, cough or wheezes no abdominal pain, nausea or vomiting, diarrhea or constipation no dysuria, hematuria or frequency no focal joint pain or swelling no back pain, CVA tenderness or radicular pain no bruising, bleeding or rashes no focal signs of weakness or numbness or altered sensation no complaints of anxiety or depression.. Physical Exam Physical Exam: The patient appeared well nourished and normally developed. Vital signs as documented. Head exam is normocephalic atraumatic Neck is without JVD, thyromegaly, or carotid bruits. Lungs are clear to auscultation, no focal loss of breath sounds Cardiac exam, Rhythm is regular.. No murmurs, rubs or gallops. Abdominal exam reveals normal bowel sounds, soft non tender, no masses Extremities are nonedematous and both pedal pulses are present Neurologic exam is alert and oriented, no focal loss of strength or sensation Skin is without bruises or rashes Psychologically is without concerns for anxiety or depression.. Results & Data Results & Data ([facility]) Vital Signs (Past 12 Hours) Vital Signs Pulse Resp BP Pulse Ox O2 Del Method 01/02/22 00:00 61 18 154/71 H 94 CPAP 01/02/22 03:00 65 22 01/02/22 02:00 63 17 01/02/22 01:00 62 19 01/02/22 00:00 78 16 01/01/22 23:00 75 20 01/01/22 22:00 70 18 01/01/22 21:00 69 23 01/01/22 20:00 70 23 PG Care Time/CCT Total # of Minutes Spent Total Time Spent with Patient: Total time spent is greater than 50% in coordination of care (as documented) at patient's floor/unit and/or counseling patient: Coding Diagnoses CVA (cerebral vascular accident) I63.9 Bilateral edema of lower extremity R60.0 Obesity E66.9 Sinus tachycardia R00.0 Sinus bradycardia R00.1 Depression F32.9 Venous insufficiency I87.2 Paroxysmal atrial tachycardia I47.1 HTN (hypertension) I10
[2022-01-02] MEDS: TRIAMTERENE/HCTZ 37.5/25MG TAB PO SCH (07:40)
[2022-01-02] MEDS: CLOPIDOGREL BISULFATE 75 MG TAB PO SCH (07:40)
[2022-01-02] MEDS: ACETAMINOPHEN 500 MG TAB PO PRN (08:25)
[2022-01-02] MEDS ORDERED: STROKE PATIENT DISCHARGE STA (12:01)
--- NOTE | 2022-01-02 19:39 | Discharge Summary ---
Date of Service January 02, 2022 Admission HPI Per Admitting Provider Vi Lopez is a 76-year-old female with a past medical history of hyperglycemia, paroxysmal atrial tachycardia, hypertension, and hyperlipidemia who presented to the emergency department for evaluation of strokelike symptoms. Patient arrived as a stroke alert. Per ER report patient was in her normal state of health this morning. At approximately 1505 hrs. patient was in the kitchen and could not use her left side. Was found by patient's who called 911 at 1509. Patient was noted on initial ER assessment to have a left facial droop, difficulty speaking, left arm weakness, and left leg weakness. Symptoms did begin to improve in the emergency department. Patient was given TNKase at 16:49 hours Received 1 dose of labetalol for hypertension. Patient seen at bedside post TNKase. She is awake and alert to name, place, and year. She is seen at the bedside with her family present. She reports that she was in her kitchen and walked to the counter when suddenly a paper plate seem to keep moving away from her and she could not catch it. Had a left-sided weakness, facial droop, and speaking difficulty per her family. EMS was called and symptoms were noted at 1509. In the ER her left arm and left leg weakness which was near complete per EMS was slightly improved but patient remained with facial droop and prominent dysarthria. She received TNKase at 1649. Vi reports she did not have any chest pain, chest pressure, nausea, vomiting, palpitations either at or leading to her stroke. She has never had a stroke before. She has a history of fast heart rate, but no history of A. fib. She has not had a stroke before. She notes her mother had MCA strokelike symptoms due to a meningioma, but did not have any actual strokes. She does have hypertension, relatively well controlled. No history of diabetes. No current or former history of tobacco use. Social alcohol use. She is on a statin medication for hyperlipidemia without known coronary artery disease. She reports she is starting to feel better and has good strength in her left arm and left leg, but continues to have dysarthria and some lightheadedness. Medical History: Reviewed Medications: Reviewed Surgical History: Reviewed Allergies: Reviewed Social History: No current or former tobacco use. Rare social alcohol use. No recreational drug use Code Status: Full code. Did discuss with patient and family at bedside Principal Diagnosis stroke right frontal parietal, temporal lobes Discharge Exam The patient appeared stable Vital signs as documented. Lungs are clear to auscultation and appear unlabored Cardiac exam, Rhythm is regular.. No murmurs, rubs or gallops. Abdominal exam reveals normal bowel sounds, soft non tender, no masses Extremities are nonedematous and both pedal pulses are normal. Neurologic exam is alert and oriented, no focal loss of strength or sensation Skin is without bruises or rashes Psychologically is without concerns for anxiety or depression. Discharge Data Allergies Allergy/AdvReac Type Severity Reaction Status Date / Time erythromycin base AdvReac Intermediate Nausea Verified 12/30/21 16:41 meperidine AdvReac Intermediate NAUSEA Verified 12/30/21 16:41 Consultations 12/30/21 17:35 ED Decision to Admit Stat 12/30/21 19:06 Consult Telephone Technician Routine Consult Neurology Routine Ordered Studies 12/30/21 16:07 CT angio head w con Stat CT angio neck with con Stat CT head/brain wo con Stat 12/31/21 03:52 CT head/brain wo con Urgent 12/31/21 04:13 MR brain wo con Routine Hospital Course (1) CVA (cerebral vascular accident): Vi Lopez is a 76-year-old female with a past medical history of hyperglycemia, paroxysmal atrial tachycardia, hypertension, and hyperlipidemia who presented to the emergency department for evaluation of strokelike symptoms. Patient arrived as a stroke alert. Acute CVA, suspicious for MCA territory CVA CTA/CThead/neck: 1. No acute intracranial hemorrhage, evidence of acute territorial infarction, or other acute intracranial disease process.2. No occlusion, hemodynamically significant stenosis, or dissection in the major cervical arteries. 3. No occlusion, hemodynamically significant stenosis, aneurysm, dissection, or arteriovenous malformation in the major intracranial arteries. - L side weakness, arm weakness, facial droop, dysarthria at - Recieved TNKase- improving Echo TTE: LV SF normal, mild concentric LVH, no significant valvular disease, no intracardiac thrombus MRI Multiple small foci of acute infarctions within the right frontal, parietal and temporal lobes. No mass effect. No evidence for hemorrhage. , switched pravastatin to atorvastatin 80. - Continue Plavix, aspirin DCed - PT/OT and placement pending Paroxysmal atrial tachycardia No history of A. fib, had been on metoprolol pre hospital, heart rates are slower, will follow Hypertension triamterenehydrochlorothiazide held while n.p.o. labetelol as noted, permissive HTN period Hyperlipidemia Strong family history of CAD, no personal history of CAD. 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 Right knee arthritis Was pending right knee arthroplasty 01/09/2022 Pulmonary hypertension Borderline noted in 2018, no symptoms, no treatment for this [employer] HELPER Sleep apnea Compliant with CPAP DVT prophylaxis: SCDs, pharmacal prophylaxis contraindicated post tenecteplase (2) Bilateral edema of lower extremity: (3) Obesity: (4) Sinus tachycardia: (5) Sinus bradycardia: (6) Depression: (7) Venous insufficiency: (8) Paroxysmal atrial tachycardia: (9) HTN (hypertension): Total Time Total Time Spent Total Time Spent (In Minutes): It required greater than 30 minutes to prepare this patient for discharge Discharge Plan Discharge Items Patient Disposition: Transfer Inpatient Rehab Fac Reason For Visit: CVA S/P TNK Discharge Diagnosis: embolic stroke Activity: Per Instructions section Activity Comment: As per rehab Non-emergency contact: Primary Care Provider and Purchasing Associate Call non-emergency contact if: your symptoms worsen Follow-up/Referrals: Caridad Rolon DO [Primary Care Provider] - Diet: Heart Healthy Addtl Attending Provider Instructions: Risk Factors for Stroke: You can reduce your chances of stroke by working with your medical provider to adopt a healthy lifestyle. Some specific ways to lower your chance of stroke are: * If you are a smoker, now is the time to stop smoking cigarettes * If you are diabetic, improve the control of your blood sugars * Avoid excessive amounts of alcohol * Control high blood pressure * Lose weight if you are overweight * Be sure to lead an active lifestyle * Eat a healthy diet low in salt, cholesterol and fat You should know about other risk factors for stroke that you are unable to control. These include: * Age 55 years or older * Male gender * Certain racial groups: , or / * Family History of Stroke, Mini stroke or Heart Attack * Sickle Cell Disease Follow Up: It is important for you to keep your follow up appointments with your medical provider. Who to Call and When: Medical Emergencies: Call 911 immediately if you experience any of the following warning signs and symptoms of Stroke: * Sudden numbness or weakness of the face, arm or leg, especially on one side of the body * Sudden confusion, trouble speaking or understanding * Sudden trouble seeing in one or both eyes * Sudden trouble walking, dizziness, loss of balance or coordination * Sudden severe headache with no cause Do not delay calling 911 if you experience any warning signs or symptoms of a stroke. Delay in seeking medical attention may affect what treatments can be given to you. . Pending Studies at Discharge: No Stand-Alone Forms: Medications to Prevent Stroke, My [facility] [email or web address] Skilled Items Patient informed of condition?: Yes DNR: No Discharge Level of Care: Acute rehab Communicable Disease: No Discharge Prognosis: Stable Lines: None Urinary Catheter: No Medications and DC Order Prescriptions: New clopidogrel 75 mg Tablet 75 mg PO QAM Qty: 90 5RF atorvastatin 40 mg Tablet 80 mg PO HS Qty: 60 0RF Pharmacist Discharge Consult [Pharmacist Discharge Med Rec Consult] 1 ea Not Applicable UD PRN (Reason: Cva) Qty: 1 0RF metoprolol tartrate 25 mg tablet 12.5 mg PO BID Qty: 60 0RF Continued citalopram 40 mg tablet 40 mg PO QPM Qty: 90 3RF multivitamin Tablet 1 tab PO QAM ascorbic acid (vitamin C) [Vitamin C] 1,000 mg Tablet 1,000 mg PO HS calcium carbonate-vitamin D3 [Os-Pan 500 + D3] 500 mg(1,250mg) -200 unit Tablet 1 tab PO BID omega [id number] oil [Fish Oil] 1,000 mg (120 mg-180 mg) capsule 1 cap PO BID potassium chloride [Klor-Con M20] 20 mEq tablet,ER particles/crystals 20 meq PO QAM triamterene-hydrochlorothiazid 37.5-25 mg tablet 1 tab PO QAM cyanocobalamin (vitamin B-12) 100 mcg Tablet 1,000 mcg PO PM Discontinued metoprolol succinate 25 mg tablet extended release 24 hr 25 mg PO .COMPLEX Qty: 180 3RF Rx Instructions: 25 mg AM, takes 12.5 PM celecoxib [Celebrex] 200 mg Capsule 200 mg PO DAILY PRN (Reason: Pain) pravastatin 80 mg tablet 80 mg PO HS Discharge Orders: Discharge Order (Routine); Ordered 01/02/22 Ordered By: Maikol Holguin/Other Patient Handouts: Stroke Self Care After Admission Data Admit Date/Time: 12/30/21 17:44 Attending Provider: Maikol Salazar Admit Provider: Edi Preciado Primary Care Provider: Caridad Rolon Other Providers: Edi Preciado ; Tim Schroeder ; Elias Toscano ; [facility] Other Interventions: Discharge Summary Assessment (RN) Last Done: 01/02/22 14:21 Coding Level of Care Code D/C DAY MANAGEMENT >30 MINS Diagnoses CVA (cerebral vascular accident) I63.9 Bilateral edema of lower extremity R60.0 Obesity E66.9 Sinus tachycardia R00.0 Sinus bradycardia R00.1 Depression F32.9 Venous insufficiency I87.2 Paroxysmal atrial tachycardia I47.1 HTN (hypertension) I10
== END 2022-01-02 15:05 | DRG 62 ==
LOC: ED 16:25 → 1E 17:44 → SUATTDRO 17:44 → 1E 18:15 → 2S 01-02 10:42